=== PATIENT | male | born 1945 | race Caucasian/White ===

== ENCOUNTER 2022-11-22 08:47 | Inpatient (IN) | payer MEDICARE, BC ==
[~2022-11-22] VITALS: Ht 188 cm; Wt 101.4 kg
[~2022-11-22 08:47] MED LIST: ASPI-1053 PO; CARB1TAB36; CARV-50 PO; CARV25TA PO; COL0.6T; DABI150C PO; FURO40TA4 PO; GABA-338 PO; LISI-222 PO; POTA20TA84 PO; RASA1TAB PO; SIMV10TA98 PO; SULI150T50 PO
--- NOTE | 2022-11-22 09:20 | NUR ---
ASSUMED CARE FROM RN. PT RESTINF IN BED, GRAVEDIGGER IN PLACE. DAUGHTER AT BEDSIDE. INTRODUCED SELF AND ROLE. PT EDUCATED TO POC. PT IN AGREEMENT.
[2022-11-22] MEDS ORDERED: LidoCAINE 2% Topical Jelly 11mL syringe TOP ONE (10:15)
[2022-11-22 10:20] LABS: BASOPHILS % (AUTO) 1.3 % (0-1); EOSINOPHILS # (AUTO) 0.2 X10'3 (0-0.9); EOSINOPHILS % (AUTO) 4.1 % (0-6); HEMOGLOBIN 9.3 g/dl (14.0-17.9); LYMPHOCYTES # (AUTO) 0.7 X10'3 (1.1-4.8); MEAN CORPUSCULAR HEMOGLOBIN 33.7 PG (27.0-31.0); MEAN CORPUSCULAR HGB CONC 34.3 g/dL (33.0-36.5); MEAN CORPUSCULAR VOLUME 98.2 FL (78-98); MEAN PLATELET VOLUME 8.4 FL (7.4-10.4); MONOCYTES # (AUTO) 0.4 X10'3 (0-0.9); MONOCYTES % (AUTO) 10.6 % (2-12); NEUTROPHILS # (AUTO) 2.4 X10'3 (1.8-7.7); PLATELET COUNT 108 X10'3 (140-440); RED BLOOD COUNT 2.75 X10'6 (4.70-6.10); RED CELL DISTRIBUTION WIDTH 13.9 % (11.5-14.5); WHITE BLOOD COUNT 3.7 X10'3 (4.5-11.0)
[2022-11-22 10:26] LABS: LACTIC SEPSIS 0.7 MMOL/L (0.4-2.0)
[2022-11-22 10:32] LABS: ALANINE AMINOTRANSFERASE 9 U/L (12-78); ALBUMIN 3.3 G/DL (3.4-5.0); ALKALINE PHOSPHATASE 78 IU/L (46-116); ANION GAP 8 (8-16); ASPARTATE AMINO TRANSFERASE 22 U/L (10-37); BILIRUBIN,TOTAL 1.1 MG/DL (0.1-1.0); BLOOD UREA NITROGEN 40 MG/DL (7-18); CHLORIDE 88 MMOL/L (99-107); CREATININE 1.38 MG/DL (0.60-1.10); GLUCOSE 119 MG/DL (70-104); POTASSIUM 4.4 MMOL/L (3.5-5.1); SODIUM 122 MMOL/L (135-145); TOTAL CARBON DIOXIDE 25.8 MMOL/L (24-32); TOTAL PROTEIN 6.6 G/DL (6.4-8.2); eGFR 50 ML/MIN
[2022-11-22] MEDS ORDERED: furosemide 10 MG/1 ML 10ml inj IV ONE (10:40)
[2022-11-22] MEDS ORDERED: potassium Cl 40MEQ/1/2NS 520ml 520 ML IV PRN (11:45)
[2022-11-22] MEDS ORDERED: MESSAGE TO PHARMACY PO ONE (11:45)
[2022-11-22] MEDS ORDERED: DEXTROSE 15 GM of carb/4 tabs (each vial/BOTTLE has 4 tablets) PO PRN ×2 (11:45)
[2022-11-22] MEDS ORDERED: glucagon, human recombinant 1mg kit SUBCUT PRN (11:45)
[2022-11-22] MEDS ORDERED: magnesium 2GM in 50ml NS 50 ML IV PRN (11:45)
[2022-11-22] MEDS ORDERED: insulin Lispro (HumaLOG) vial - multi-dose SQ SCH (11:45)
[2022-11-22] MEDS ORDERED: ondansetron/PF 4mg/2ml inj IV PRN (11:45)
[2022-11-22] MEDS ORDERED: acetaminophen 325mg tablet PO PRN (11:45)
[2022-11-22] MEDS ORDERED: PERFLUTREN PROTEIN-A MICROSPHR (Optison) 0.22 MG/ML 3ML VIAL IV ONE (11:45)
[2022-11-22] MEDS ORDERED: potassium Cl 20 mEq SR tablet PO PRN ×2 (11:45)
[2022-11-22] MEDS ORDERED: dextrose 50%-water 50ml dispensing syringe IV PRN ×2 (11:45)
[2022-11-22] MEDS ORDERED: magnesium Cl slow-release 64mg tablet PO PRN ×2 (11:45)
[2022-11-22] MEDS ORDERED: magnesium 4gm in 100ml NS 100 ML IV PRN (11:45)
[2022-11-22 12:11] LABS: MAGNESIUM 1.8 MG/DL (1.5-2.4)
[2022-11-22] MEDS: normal saline 1000ml 1,000 ML IV SCH (19:04)
[2022-11-22] MEDS ORDERED: SACU1TAB7 PO (19:37)
--- NOTE | 2022-11-22 19:53 | NUR ---
pt placed onto inpatient bed
[2022-11-22] MEDS: docusate sod 100mg capsule PO SCH (20:00)
[2022-11-22] MEDS: K and/or MAG REPLACEMENT MC SCH (20:00)
--- NOTE | 2022-11-22 20:26 | NUR ---
[facility] [phone] [facility] [place] [phone]
[2022-11-22] MEDS: insulin glargine (Lantus) pen - multi-dose SQ SCH (22:37)
--- NOTE | 2022-11-23 02:16 | NUR ---
SPOKE WITH HOSPITALIST REGARDING SOFT BP. ORDER FOR 500ML BOLUS RECIEVED
[2022-11-23] MEDS ORDERED: normal saline 500ml IV soln 500 ML IV ONE (02:20)
[2022-11-23 03:36] LABS: BASOPHILS % (AUTO) 1.2 % (0-1); EOSINOPHILS # (AUTO) 0.1 X10'3 (0-0.9); HEMATOCRIT 23.3 % (42.0-52.0); LYMPHOCYTES # (AUTO) 0.6 X10'3 (1.1-4.8); LYMPHOCYTES % (AUTO) 19.8 % (21-51); MEAN CORPUSCULAR HEMOGLOBIN 33.7 PG (27.0-31.0); MEAN CORPUSCULAR HGB CONC 34.3 g/dL (33.0-36.5); MEAN CORPUSCULAR VOLUME 98.2 FL (78-98); MEAN PLATELET VOLUME 8.2 FL (7.4-10.4); MONOCYTES # (AUTO) 0.4 X10'3 (0-0.9); MONOCYTES % (AUTO) 11.8 % (2-12); NEUTROPHILS % (AUTO) 63.2 % (42-75); PLATELET COUNT 89 X10'3 (140-440); RED BLOOD COUNT 2.38 X10'6 (4.70-6.10); RED CELL DISTRIBUTION WIDTH 14.1 % (11.5-14.5); WHITE BLOOD COUNT 3.1 X10'3 (4.5-11.0)
[2022-11-23 03:52] LABS: ALBUMIN 2.5 G/DL (3.4-5.0); ANION GAP 6 (8-16); BLOOD UREA NITROGEN 38 MG/DL (7-18); BUN/CREATININE RATIO 31.4 (10.0-20.0); CALCIUM 8.2 MG/DL (8.5-10.1); CHLORIDE 90 MMOL/L (99-107); CREATININE 1.21 MG/DL (0.60-1.10); GLUCOSE 129 MG/DL (70-104); MAGNESIUM 1.6 MG/DL (1.5-2.4); POTASSIUM 4.3 MMOL/L (3.5-5.1); SODIUM 123 MMOL/L (135-145); TOTAL CARBON DIOXIDE 26.6 MMOL/L (24-32); eGFR 58 ML/MIN
[2022-11-23] MEDS: normal saline 1000ml 1,000 ML IV SCH ×2 (04:37→14:25)
[2022-11-23] MEDS: K and/or MAG REPLACEMENT MC SCH ×2 (08:00→20:00)
[2022-11-23] MEDS: docusate sod 100mg capsule PO SCH ×2 (08:00→22:09)
--- NOTE | 2022-11-23 08:15 | NUR ---
Second attempt to give report to the surgical nurse, the nurse not available giving medication to a patient.
--- NOTE | 2022-11-23 08:39 | NUR ---
Received report from MISTI Garza from the ER. Reprioritized patients plan of care, needs and current condition. Patient is NAD at this time. Patient is going to room 352 A. Comming up via hospital bed
--- NOTE | 2022-11-23 09:30 | NUR ---
TELE number 43 applied to patient.
[2022-11-23 11:00] VITALS: BP 107/53
--- NOTE | 2022-11-23 11:14 | NUR ---
Wound care consult put in for BLE's seeping pitting edema/ flakiness/ scaley. Opti foam applied to an open area on the back side. Patient states it was a burn.
--- NOTE | 2022-11-23 11:27 | NUR ---
Non admin SCD's at this time, as patients BLE's are to swollen with 4+ pitting edema. Addendum: 11/23/22 at 1127 by Rina Phillip LVN, LVN Amended: Links added.
--- NOTE | 2022-11-23 11:33 | NUR ---
Paged the hospitalist in re: to order of NS running @ 100 IV and patient has 4+ pitting edema. Also awaiting to relay an FYI for patient H&H.
[2022-11-23] MEDS ORDERED: CHOL100046 PO (12:52)
[2022-11-23] MEDS ORDERED: CYAN500T46 PO (12:52)
[2022-11-23] MEDS ORDERED: CHOL20002 PO (12:52)
[2022-11-23] MEDS ORDERED: CYAN-51 SL (12:52)
--- NOTE | 2022-11-23 15:49 | NUR ---
Applied JOAO alonzo, per Dr. Miranda.
--- NOTE | 2022-11-23 17:08 | NUR ---
Called TELE unit to receive info if we can interrogate that patients specific pacemaker per Dr. Miranda's request,
--- NOTE | 2022-11-23 18:00 | NUR ---
I have reviewed and agree with interventions, assessments performed, and documentation by Rina Randolph LVN.
--- NOTE | 2022-11-23 18:19 | NUR ---
Reprioritized patients plan of care. NAD at this time. Report given to MISTI Almanza.
--- NOTE | 2022-11-23 18:30 | NUR ---
Patient in room TEENA 352. I have received report from ANGELI and had the opportunity to ask questions and assume patient care.
[2022-11-23 19:00] VITALS: BP 94/50
[2022-11-23] MEDS ORDERED: LISI5TAB22 PO (20:12)
[2022-11-23] MEDS ORDERED: DABI150C PO (20:12)
[2022-11-23] MEDS ORDERED: RASA0.5T PO (20:12)
[2022-11-23] MEDS ORDERED: CARB1TAB60 PO (20:12)
[2022-11-23] MEDS ORDERED: GABA300C PO (20:12)
[2022-11-23] MEDS ORDERED: ATOR40TA PO (20:12)
[2022-11-23] MEDS ORDERED: COLC0.6T72 PO (20:12)
[2022-11-23] MEDS ORDERED: SULI150T50 PO (20:12)
--- NOTE | 2022-11-23 20:15 | NUR ---
DR HARGROVE NOTIFIED: MED REC NEEDS TO BE ADDRESSED. PT HAS VERY LARGE, HARD DISTENDED ABD. MINIMAL BOWEL SOUNDS. PT DENIES GAS AND STATES HIS LAST BM WAS "A COUPLE OF DAYS AGO" ORDERS FOR SOAP SUDS ENEMA AND MOM.
[2022-11-23] MEDS ORDERED: magnesium hydroxide 30ml (MOM) UD suspension PO PRN (20:25)
[2022-11-23] MEDS: insulin glargine (Lantus) pen - multi-dose SQ SCH (21:00)
[2022-11-23] MEDS ORDERED: carVEDilol 12.5mg tablet PO SCH (21:00)
[2022-11-23] MEDS ORDERED: atorvastatin 20mg tablet PO SCH (21:00)
--- NOTE | 2022-11-23 22:00 | NUR ---
BOWEL SOUNDS NOW ACTIVE. PT STATES POSITIVE GAS AND SMALL LIQUID BROWN BM
[2022-11-23] MEDS: carbidoba-levodopa 25-100mg tablet PO SCH (22:09)
[2022-11-23] MEDS: gabapentin 300mg capsule PO SCH (22:10)
[2022-11-23 23:00] VITALS: BP 95/45
[2022-11-24] VITALS (17 sets, daily range): BP systolic 79–123; BP diastolic 35–79
[2022-11-24] MEDS: normal saline 1000ml 1,000 ML IV SCH (02:21)
--- NOTE | 2022-11-24 06:55 | NUR ---
Problems reprioritized. Patient report given, questions answered & plan of care reviewed with NORIS.
--- NOTE | 2022-11-24 06:57 | NUR ---
Patient in room TEENA 352. I have received report from Jessica CHAPPELL and had the opportunity to ask questions and assume patient care.
[2022-11-24 07:00] LABS: BASOPHILS % (AUTO) 0.8 % (0-1); EOSINOPHILS # (AUTO) 0.2 X10'3 (0-0.9); EOSINOPHILS % (AUTO) 4.7 % (0-6); HEMATOCRIT 23.6 % (42.0-52.0); HEMOGLOBIN 8.2 g/dl (14.0-17.9); LYMPHOCYTES # (AUTO) 0.8 X10'3 (1.1-4.8); LYMPHOCYTES % (AUTO) 20.7 % (21-51); MEAN CORPUSCULAR HEMOGLOBIN 33.9 PG (27.0-31.0); MEAN CORPUSCULAR HGB CONC 34.8 g/dL (33.0-36.5); MEAN CORPUSCULAR VOLUME 97.4 FL (78-98); MEAN PLATELET VOLUME 8.8 FL (7.4-10.4); MONOCYTES # (AUTO) 0.4 X10'3 (0-0.9); MONOCYTES % (AUTO) 11.7 % (2-12); NEUTROPHILS # (AUTO) 2.4 X10'3 (1.8-7.7); NEUTROPHILS % (AUTO) 62.1 % (42-75); PLATELET COUNT 94 X10'3 (140-440); RED BLOOD COUNT 2.42 X10'6 (4.70-6.10); RED CELL DISTRIBUTION WIDTH 13.7 % (11.5-14.5); WHITE BLOOD COUNT 3.8 X10'3 (4.5-11.0)
[2022-11-24 07:11] LABS: ALBUMIN 2.5 G/DL (3.4-5.0); ANION GAP 6 (8-16); BLOOD UREA NITROGEN 31 MG/DL (7-18); BUN/CREATININE RATIO 32.6 (10.0-20.0); CALCIUM 8.4 MG/DL (8.5-10.1); CHLORIDE 93 MMOL/L (99-107); CREATININE 0.95 MG/DL (0.60-1.10); GLUCOSE 122 MG/DL (70-104); MAGNESIUM 1.7 MG/DL (1.5-2.4); POTASSIUM 4.5 MMOL/L (3.5-5.1); SODIUM 124 MMOL/L (135-145); TOTAL CARBON DIOXIDE 24.9 MMOL/L (24-32); eGFR 77 ML/MIN
--- NOTE | 2022-11-24 07:58 | NUR ---
PAGER ID: [phone] MESSAGE: Ino- Sridhar Moffett: Pt BP this morning 90/39. Please call regarding pt status RODDY aguirre [phone] called and notified BP 90/39 noted at 0600. BP taken 0740 104/50 HR 69. Patient has Normal saline infusing per MD orders at 100ml/hr. Edema +4 noted to scrotum and thighs, +2/3 edema noted to BLE and RUE. provided telephone orders for 25 grams albumin Q6 hours, to be given 3 times. Received telephone order for ABD x-ray. Noted will carry out Addendum: 11/24/22 at 0818 by Feli Villa LVN PAGER ID: [phone] MESSAGE: 352- Sridhar Moffett: BP 104/50, administer or hold scheduled coreg and entresto? RODDY Edmond [phone]
[2022-11-24] MEDS ORDERED: carVEDilol 12.5mg tablet PO SCH (08:00)
[2022-11-24] MEDS: dabigatran 150mg capsule PO SCH ×2 (08:00→21:32)
[2022-11-24] MEDS ORDERED: sacubitril/valsartan 49mg-51mg tablet PO SCH (08:00)
[2022-11-24] MEDS ORDERED: lisinopril 5mg tablet PO SCH (08:00)
[2022-11-24] MEDS: K and/or MAG REPLACEMENT MC SCH ×2 (08:00→20:00)
[2022-11-24] MEDS: gabapentin 300mg capsule PO SCH ×3 (09:07→21:32)
[2022-11-24] MEDS: aspirin 81mg tab.chew PO SCH (09:07)
[2022-11-24] MEDS: docusate sod 100mg capsule PO SCH ×2 (09:08→21:32)
[2022-11-24] MEDS: colchicine 0.6mg tablet PO SCH (09:08)
[2022-11-24] MEDS: carbidoba-levodopa 25-100mg tablet PO SCH ×3 (09:08→21:33)
--- NOTE | 2022-11-24 09:45 | NUR ---
BP obtained 119/59 HR 72, scheduled medication administered. Awaiting MD response to administer or hold scheduled pradaxa Addendum: 11/24/22 at 1309 by Feli Villa LVN Page sent again PAGER ID: [phone] MESSAGE: Sridhar Villarreal- Pt platelets 94 administer or hold pradaxa? Per Rojas Addendum: 11/24/22 at 1319 by Feli Villa LVN MD did not respond, call placed to MD brand Received telephone order to hold scheduled dose this morning and to administer this evening as scheduled ordered to continue to monitor
[2022-11-24] MEDS: albumin (human) 25% 100ml IV 100 ML IV SCH ×3 (09:47→20:44)
--- NOTE | 2022-11-24 09:55 | NUR ---
DM consult: No documented PMH DM with A1c hx 6.4% 09/28/12 and A1c 5.1% this admit. Noted pt with h/o CHF though no lipid panel this admit and pt with hyponatremia. Message left for RN with recommendation to discontinue heart healthy and CHO controlled diet restrictions in view of previously mentioned information. Will continue to follow. Addendum: 11/24/22 at [address] Amended: Links added.
[2022-11-24] MEDS ORDERED: furosemide inj 100 MG in normal saline 100ml IV soln 90 ML IV SCH (10:55)
--- NOTE | 2022-11-24 13:00 | NUR ---
I have reviewed and agree with interventions, assessments, and documentation by Feli Garces LVN.
--- NOTE | 2022-11-24 13:53 | NUR ---
PAGER ID: [phone] MESSAGE: 352-Sridhar Moffett: You still want to continue albumin correct? Per hale [id number] Addendum: 11/24/22 at 1355 by Feli Villa LVN called and provided telephone order yes
--- NOTE | 2022-11-24 14:30 | NUR ---
Report provided to Abeba CHAPPELL on Tele. Patient is stable, no s/sx of distress noted, patient denies pain. AOx4. 2 daughters at bedside, all belongings accounted for and sent with patient. Patient assisted to telemetry floor via hospital bed.
--- NOTE | 2022-11-24 15:21 | NUR ---
PRESSURE ULCER EDUCATION: DEFINITION: A pressure ulcer is an area of skin that breaks down when you stay in one position too long. The constant pressure against the skin reduces the blood flow to that area and the affected tissue dies. CAUSES: "Being bedridden or in a wheelchair "Fragile skin "Having a chronic condition, such as diabetes or vascular disease "Inability to move certain parts of your body without assistance "Older age "Incontinence of urine or stool SYMPTOMS: "A reddened area that DOES NOT turn white when pressed on - this can be the beginning of a pressure ulcer "A blister, deep sore or a crater - these can be advanced pressure ulcers FIRST AID: "Relieve the pressure on this area "Keep the area clean and dry "Call your primary doctor if you see any of the above symptoms "DO NOT massage the area "DO NOT use a donut shaped or ring shaped pillow- these actually interfere with the blood flow and cause complications PREVENTION: "Check for pressure ulcers everyday "Change position at least every two hours to relieve pressure "Use items that help relieve pressure- pillows, sheepskin, foam padding, and powders. "Keep skin clean and dry "Eat healthy well balanced meals "Exercise daily IF YOU SEE ANY OF THESE SYMPTOMS WHILE IN THE HOSPITAL - TELL YOUR NURSE IMMEDIATELY. IF YOU SEE ANY OF THESE SYMPTOMS WHILE AT HOME OR HAVE ANY QUESTIONS OR CONCERNS ABOUT PRESSURE ULCERS - CALL YOUR PRIMARY DOCTOR IMMEDIATELY. Addendum: 11/24/22 at 1521 by Liyah Villalpando RN Amended: Links added.
[2022-11-24 15:27] LABS: ALBUMIN 2.6 G/DL (3.4-5.0); ANION GAP 4 (8-16); BLOOD UREA NITROGEN 31 MG/DL (7-18); CALCIUM 8.4 MG/DL (8.5-10.1); CHLORIDE 92 MMOL/L (99-107); CREATININE 0.97 MG/DL (0.60-1.10); GLUCOSE 121 MG/DL (70-104); POTASSIUM 4.5 MMOL/L (3.5-5.1); SODIUM 123 MMOL/L (135-145); eGFR 75 ML/MIN
--- NOTE | 2022-11-24 16:24 | NUR ---
Notified pharmacy to bring lasix gtt, still pending gtt to be rec'd to unit.
[2022-11-24] MEDS: furosemide inj 100 MG in normal saline 100ml IV soln 90 ML IV SCH (16:56)
--- NOTE | 2022-11-24 18:36 | NUR ---
Patient in room PCU 3019. I have received report from Abeba CHAPPELL and had the opportunity to ask questions and assume patient care.
[2022-11-24] MEDS ORDERED: sacubitril/valsartan 24mg-26mg tablet PO SCH (20:00)
--- NOTE | 2022-11-24 20:15 | NUR ---
Pt to floor. Alert and oriented no c/o of dizzyness/lightheadedness/nausea/pain. Pt has 4+ pitting edema in all extremeties. He is hypotensive with MAP of 55. paced rhythm. only 50cc of UO in Lambert. 18g PIV placed L UE for albumin and possible levophed. Awaiting critical care consult.
[2022-11-24 20:53] LABS: BASOPHILS % (AUTO) 0.9 % (0-1); EOSINOPHILS # (AUTO) 0.2 X10'3 (0-0.9); EOSINOPHILS % (AUTO) 5.8 % (0-6); HEMATOCRIT 23.5 % (42.0-52.0); LYMPHOCYTES # (AUTO) 0.6 X10'3 (1.1-4.8); LYMPHOCYTES % (AUTO) 23.1 % (21-51); MEAN CORPUSCULAR HEMOGLOBIN 33.4 PG (27.0-31.0); MEAN CORPUSCULAR HGB CONC 33.9 g/dL (33.0-36.5); MEAN CORPUSCULAR VOLUME 98.5 FL (78-98); MEAN PLATELET VOLUME 8.2 FL (7.4-10.4); MONOCYTES # (AUTO) 0.3 X10'3 (0-0.9); MONOCYTES % (AUTO) 12.4 % (2-12); NEUTROPHILS # (AUTO) 1.6 X10'3 (1.8-7.7); NEUTROPHILS % (AUTO) 57.8 % (42-75); PLATELET COUNT 83 X10'3 (140-440); RED BLOOD COUNT 2.38 X10'6 (4.70-6.10); RED CELL DISTRIBUTION WIDTH 14.2 % (11.5-14.5); WHITE BLOOD COUNT 2.7 X10'3 (4.5-11.0)
[2022-11-24 20:59] LABS: ALBUMIN 2.9 G/DL (3.4-5.0); ANION GAP 4 (8-16); BLOOD UREA NITROGEN 32 MG/DL (7-18); BUN/CREATININE RATIO 33.3 (10.0-20.0); CALCIUM 8.2 MG/DL (8.5-10.1); CHLORIDE 92 MMOL/L (99-107); CREATININE 0.96 MG/DL (0.60-1.10); GLUCOSE 128 MG/DL (70-104); POTASSIUM 4.5 MMOL/L (3.5-5.1); SODIUM 123 MMOL/L (135-145); TOTAL CARBON DIOXIDE 26.7 MMOL/L (24-32); eGFR 76 ML/MIN
[2022-11-24] MEDS: insulin glargine (Lantus) pen - multi-dose SQ SCH (21:00)
--- NOTE | 2022-11-24 21:00 | NUR ---
rounded on pt. Aware the Lasix drip is not doing much for the pt currently. Lasix 40mg bolus ordered. If pt continues to have MAPs less than 60 than start norepi. is aware pt does not have a CVC but I did place an extended length 18g via US in the RUE.
[2022-11-24] MEDS ORDERED: NORepinephrine 8mg/ 250ml NS 250 ML IV PRN (21:35)
[2022-11-24] MEDS ORDERED: furosemide 40mg/4ml inj IV ONE (21:45)
[2022-11-25] VITALS (24 sets, daily range): BP systolic 85–126; BP diastolic 36–70
[2022-11-25] MEDS: furosemide inj 100 MG in normal saline 100ml IV soln 90 ML IV SCH ×2 (00:06→10:47)
--- NOTE | 2022-11-25 00:29 | NUR ---
Pt had to go on norepi at low dose. MAPs > 60. UO has picked up nicely since the bolus dose of lasix was given. Pt was placed on Bipap but he was unable to comfortably wear the mask and he has been off it since he's been here (and apparently it's been broke at home for some time now).
[2022-11-25 02:44] LABS: EOSINOPHILS # (AUTO) 0.3 X10'3 (0-0.9); HEMATOCRIT 24.2 % (42.0-52.0); MONOCYTES # (AUTO) 0.6 X10'3 (0-0.9); RED BLOOD COUNT 2.47 X10'6 (4.70-6.10)
[2022-11-25 02:46] LABS: BASOPHILS % (AUTO) 1.1 % (0-1); EOSINOPHILS % (AUTO) 6.4 % (0-6); HEMOGLOBIN 8.4 g/dl (14.0-17.9); LYMPHOCYTES # (AUTO) 0.7 X10'3 (1.1-4.8); LYMPHOCYTES % (AUTO) 16.1 % (21-51); MEAN CORPUSCULAR HEMOGLOBIN 33.8 PG (27.0-31.0); MEAN CORPUSCULAR HGB CONC 34.5 g/dL (33.0-36.5); MEAN CORPUSCULAR VOLUME 98.1 FL (78-98); MEAN PLATELET VOLUME 8.2 FL (7.4-10.4); NEUTROPHILS % (AUTO) 64.4 % (42-75); PLATELET COUNT 113 X10'3 (140-440); RED CELL DISTRIBUTION WIDTH 14.2 % (11.5-14.5); WHITE BLOOD COUNT 4.6 X10'3 (4.5-11.0)
[2022-11-25 02:50] LABS: ANION GAP 5 (8-16); BLOOD UREA NITROGEN 31 MG/DL (7-18); BUN/CREATININE RATIO 33.3 (10.0-20.0); CALCIUM 8.2 MG/DL (8.5-10.1); CHLORIDE 92 MMOL/L (99-107); CREATININE 0.93 MG/DL (0.60-1.10); GLUCOSE 143 MG/DL (70-104); MAGNESIUM 1.7 MG/DL (1.5-2.4); PHOSPHORUS 3.1 MG/DL (2.3-4.5); POTASSIUM 4.6 MMOL/L (3.5-5.1); SODIUM 125 MMOL/L (135-145); eGFR 79 ML/MIN
--- NOTE | 2022-11-25 06:18 | NUR ---
Patient in room CICU 2007. I have received report from Felix Morris and had the opportunity to ask questions and assume patient care.
[2022-11-25] MEDS: K and/or MAG REPLACEMENT MC SCH ×2 (08:00→20:00)
[2022-11-25] MEDS: carbidoba-levodopa 25-100mg tablet PO SCH ×3 (08:25→20:08)
[2022-11-25] MEDS: docusate sod 100mg capsule PO SCH ×2 (08:26→20:08)
[2022-11-25] MEDS: gabapentin 300mg capsule PO SCH ×3 (08:26→20:08)
[2022-11-25] MEDS: aspirin 81mg tab.chew PO SCH (08:26)
[2022-11-25] MEDS: pantoprazole 40mg Tablet.DR PO SCH (08:58)
--- NOTE | 2022-11-25 10:38 | NUR ---
Suture Gauger recommended regular diet vs current order of heart healthy. new order rec MINIATURE TRAIN DRIVER for reg diet.
[2022-11-25 10:40] LABS: ALBUMIN 2.7 G/DL (3.4-5.0); ANION GAP 6 (8-16); BLOOD UREA NITROGEN 31 MG/DL (7-18); BUN/CREATININE RATIO 36.5 (10.0-20.0); CALCIUM 8.1 MG/DL (8.5-10.1); CHLORIDE 92 MMOL/L (99-107); CREATININE 0.85 MG/DL (0.60-1.10); GLUCOSE 126 MG/DL (70-104); POTASSIUM 4.5 MMOL/L (3.5-5.1); SODIUM 124 MMOL/L (135-145); TOTAL CARBON DIOXIDE 25.6 MMOL/L (24-32); eGFR 88 ML/MIN
--- NOTE | 2022-11-25 10:47 | NUR ---
Noted pt with a low Jeffrey of 11. Per [facility] note pt with a burn walter on his back from a heating pad that's healing. No other wounds identified at this time. D/w RN recommendation for diet liberalization, pt now on a regular diet. Will continue to follow. Addendum: 11/25/22 at [address] Amended: Links added.
[2022-11-25] MEDS: dabigatran 150mg capsule PO SCH ×2 (12:50→20:07)
[2022-11-25] MEDS: colchicine 0.6mg tablet PO SCH (12:52)
--- NOTE | 2022-11-25 13:15 | NUR ---
After informed consent was obtained, Allens test was performed with positive results then patient was prepped and draped in usual sterile fashion for radial arterial line insertion. The right wrist was anesthetized with 1% Lidocaine total of 1ml was infiltrated and the right radial artery accessed via the Seldinger technique after which a 5F micro puncture catheter was inserted and connected to pressure bag transduced and correlated with cuff pressure. Puncture site was covered with sterile dressing and wrist immobilized. All questions, comments and or concerns were addressed from patient family and floor nursing staff prior to leaving patients room. Approximate time to setup and place arterial line 45 mins estimated blood loss less then 3mls.
[2022-11-25] MEDS ORDERED: albumin (human) 25% 100 ML IV solution IV ONE (16:05)
[2022-11-25 17:30] LABS: GLUCOSE,BODY FLUID 132 MG/DL; LDH,BODY FLUID 63 U/L; TOTAL PROTEIN,BODY FLUID 3.5 G/DL
[2022-11-25 17:41] LABS: BFAPPEAR CLOUDY; BFCOLOR YELLOW; BFVOLUME 65 ML
[2022-11-25 17:43] LABS: BF WBC COUNT 140 /CU MM (0-1000)
[2022-11-25 17:45] LABS: BF RBC COUNT 3330 /CU MM; EOSINOPHILS,BODY FLUID 2 %; LYMPHOCYTES,BODY FLUID 70 %; MONOCYTES,BODY FLUID 13 %; NEUTROPHILS,BODY FLUID 15 %
--- NOTE | 2022-11-25 18:30 | NUR ---
Problems reprioritized. Patient report given, questions answered & plan of care reviewed with Memo RN.
[2022-11-25 18:50] LABS: ALBUMIN 3.1 G/DL (3.4-5.0); ANION GAP 5 (8-16); BLOOD UREA NITROGEN 32 MG/DL (7-18); BUN/CREATININE RATIO 39.5 (10.0-20.0); CALCIUM 8.3 MG/DL (8.5-10.1); CHLORIDE 91 MMOL/L (99-107); CREATININE 0.81 MG/DL (0.60-1.10); GLUCOSE 119 MG/DL (70-104); POTASSIUM 4.6 MMOL/L (3.5-5.1); SODIUM 125 MMOL/L (135-145); TOTAL CARBON DIOXIDE 28.6 MMOL/L (24-32); eGFR > 90 ML/MIN
--- NOTE | 2022-11-25 19:45 | NUR ---
Wound on buttock dressed with xeroform and foam dressing. Lotion and Calazime cream applied during bath. Pt tolerated turning well.
[2022-11-26] VITALS (24 sets, daily range): BP systolic 100–123; BP diastolic 37–55
[2022-11-26 01:24] LABS: ALBUMIN 2.8 G/DL (3.4-5.0); ANION GAP 3 (8-16); BLOOD UREA NITROGEN 30 MG/DL (7-18); BUN/CREATININE RATIO 37.5 (10.0-20.0); CALCIUM 8.1 MG/DL (8.5-10.1); CHLORIDE 93 MMOL/L (99-107); GLUCOSE 139 MG/DL (70-104); MAGNESIUM 1.5 MG/DL (1.5-2.4); POTASSIUM 4.6 MMOL/L (3.5-5.1); SODIUM 126 MMOL/L (135-145); TOTAL CARBON DIOXIDE 29.7 MMOL/L (24-32); eGFR > 90 ML/MIN
[2022-11-26] MEDS: furosemide inj 100 MG in normal saline 100ml IV soln 90 ML IV SCH ×3 (01:24→13:02)
[2022-11-26 01:49] LABS: BASOPHILS % (AUTO) 0.9 % (0-1); EOSINOPHILS # (AUTO) 0.4 X10'3 (0-0.9); EOSINOPHILS % (AUTO) 8.7 % (0-6); HEMATOCRIT 24.7 % (42.0-52.0); HEMOGLOBIN 8.4 g/dl (14.0-17.9); LYMPHOCYTES # (AUTO) 0.9 X10'3 (1.1-4.8); LYMPHOCYTES % (AUTO) 19.4 % (21-51); MEAN CORPUSCULAR HEMOGLOBIN 33.3 PG (27.0-31.0); MEAN CORPUSCULAR HGB CONC 33.9 g/dL (33.0-36.5); MEAN CORPUSCULAR VOLUME 98.3 FL (78-98); MEAN PLATELET VOLUME 8.5 FL (7.4-10.4); MONOCYTES # (AUTO) 0.6 X10'3 (0-0.9); MONOCYTES % (AUTO) 13.2 % (2-12); NEUTROPHILS # (AUTO) 2.6 X10'3 (1.8-7.7); NEUTROPHILS % (AUTO) 57.8 % (42-75); PLATELET COUNT 115 X10'3 (140-440); RED BLOOD COUNT 2.52 X10'6 (4.70-6.10); RED CELL DISTRIBUTION WIDTH 13.8 % (11.5-14.5); WHITE BLOOD COUNT 4.4 X10'3 (4.5-11.0)
[2022-11-26 06:57] LABS: ALBUMIN 2.8 G/DL (3.4-5.0); ANION GAP 5 (8-16); BLOOD UREA NITROGEN 29 MG/DL (7-18); BUN/CREATININE RATIO 39.2 (10.0-20.0); CHLORIDE 92 MMOL/L (99-107); CREATININE 0.74 MG/DL (0.60-1.10); GLUCOSE 132 MG/DL (70-104); POTASSIUM 4.5 MMOL/L (3.5-5.1); SODIUM 126 MMOL/L (135-145); TOTAL CARBON DIOXIDE 28.9 MMOL/L (24-32); eGFR > 90 ML/MIN
[2022-11-26] MEDS: pantoprazole 40mg Tablet.DR PO SCH (07:30)
[2022-11-26] MEDS: colchicine 0.6mg tablet PO SCH (08:00)
[2022-11-26] MEDS: K and/or MAG REPLACEMENT MC SCH ×2 (08:00→18:33)
[2022-11-26] MEDS: aspirin 81mg tab.chew PO SCH (08:44)
[2022-11-26] MEDS: carbidoba-levodopa 25-100mg tablet PO SCH ×3 (08:44→20:32)
[2022-11-26] MEDS: docusate sod 100mg capsule PO SCH ×2 (08:45→20:29)
[2022-11-26] MEDS: gabapentin 300mg capsule PO SCH ×3 (08:45→20:32)
[2022-11-26] MEDS: dabigatran 150mg capsule PO SCH ×2 (08:46→20:32)
[2022-11-26 09:12] LABS: ALANINE AMINOTRANSFERASE 6 U/L (12-78); ALKALINE PHOSPHATASE 63 IU/L (46-116); ASPARTATE AMINO TRANSFERASE 10 U/L (10-37); BILIRUBIN,TOTAL 0.8 MG/DL (0.1-1.0); MAGNESIUM 1.6 MG/DL (1.5-2.4); TOTAL PROTEIN 5.5 G/DL (6.4-8.2)
[2022-11-26 12:19] LABS: ALBUMIN 2.9 G/DL (3.4-5.0); ANION GAP 3 (8-16); BLOOD UREA NITROGEN 29 MG/DL (7-18); BUN/CREATININE RATIO 35.4 (10.0-20.0); CALCIUM 8.3 MG/DL (8.5-10.1); CHLORIDE 93 MMOL/L (99-107); CREATININE 0.82 MG/DL (0.60-1.10); GLUCOSE 121 MG/DL (70-104); MAGNESIUM 1.5 MG/DL (1.5-2.4); PHOSPHORUS 2.9 MG/DL (2.3-4.5); POTASSIUM 4.5 MMOL/L (3.5-5.1); SODIUM 126 MMOL/L (135-145); eGFR > 90 ML/MIN
[2022-11-26 17:29] LABS: ALBUMIN 2.9 G/DL (3.4-5.0); ANION GAP 2 (8-16); BLOOD UREA NITROGEN 29 MG/DL (7-18); BUN/CREATININE RATIO 31.2 (10.0-20.0); CALCIUM 8.3 MG/DL (8.5-10.1); CHLORIDE 94 MMOL/L (99-107); CREATININE 0.93 MG/DL (0.60-1.10); GLUCOSE 140 MG/DL (70-104); MAGNESIUM 1.5 MG/DL (1.5-2.4); PHOSPHORUS 3.1 MG/DL (2.3-4.5); POTASSIUM 4.5 MMOL/L (3.5-5.1); SODIUM 126 MMOL/L (135-145); TOTAL CARBON DIOXIDE 30.5 MMOL/L (24-32); eGFR 79 ML/MIN
[2022-11-26 23:48] LABS: ALBUMIN 2.9 G/DL (3.4-5.0); ANION GAP 3 (8-16); BLOOD UREA NITROGEN 28 MG/DL (7-18); BUN/CREATININE RATIO 32.2 (10.0-20.0); CALCIUM 8.6 MG/DL (8.5-10.1); CHLORIDE 92 MMOL/L (99-107); CREATININE 0.87 MG/DL (0.60-1.10); GLUCOSE 130 MG/DL (70-104); MAGNESIUM 1.5 MG/DL (1.5-2.4); PHOSPHORUS 3.2 MG/DL (2.3-4.5); POTASSIUM 4.6 MMOL/L (3.5-5.1); SODIUM 127 MMOL/L (135-145); TOTAL CARBON DIOXIDE 32.4 MMOL/L (24-32); eGFR 85 ML/MIN
[2022-11-27] VITALS (24 sets, daily range): BP systolic 93–132; BP diastolic 30–56
--- NOTE | 2022-11-27 00:30 | NUR ---
Called Dr. Kelly regarding pt has nausea and vomiting not relieved by Zofran. Order received.
--- NOTE | 2022-11-27 01:00 | NUR ---
Called Dr. Kelly regarding pt continuing to vomit. NG tube placed.
[2022-11-27] MEDS ORDERED: metoclopramide 5 mg/ml inj IV ONE (01:40)
[2022-11-27] MEDS: furosemide inj 100 MG in normal saline 100ml IV soln 90 ML IV SCH (03:32)
--- NOTE | 2022-11-27 04:00 | NUR ---
Pt taken to CT. Tolerated transport well.
[2022-11-27 04:12] LABS: ALBUMIN 2.9 G/DL (3.4-5.0); ALBUMIN/GLOBULIN RATIO 1.1 (1.1-1.5); ALKALINE PHOSPHATASE 67 IU/L (46-116); ANION GAP 3 (8-16); ASPARTATE AMINO TRANSFERASE 14 U/L (10-37); BILIRUBIN,TOTAL 0.9 MG/DL (0.1-1.0); BLOOD UREA NITROGEN 29 MG/DL (7-18); BUN/CREATININE RATIO 33.3 (10.0-20.0); CALCIUM 8.8 MG/DL (8.5-10.1); CHLORIDE 93 MMOL/L (99-107); CREATININE 0.87 MG/DL (0.60-1.10); GLUCOSE 145 MG/DL (70-104); MAGNESIUM 1.5 MG/DL (1.5-2.4); PHOSPHORUS 3.2 MG/DL (2.3-4.5); POTASSIUM 4.5 MMOL/L (3.5-5.1); SODIUM 127 MMOL/L (135-145); TOTAL CARBON DIOXIDE 31.3 MMOL/L (24-32); TOTAL PROTEIN 5.6 G/DL (6.4-8.2); eGFR 85 ML/MIN
[2022-11-27 04:13] LABS: ALANINE AMINOTRANSFERASE < 6 U/L (12-78)
[2022-11-27 04:28] LABS: BASOPHILS % (AUTO) 0.5 % (0-1); EOSINOPHILS # (AUTO) 0.1 X10'3 (0-0.9); EOSINOPHILS % (AUTO) 4.6 % (0-6); HEMATOCRIT 30.2 % (42.0-52.0); HEMOGLOBIN 10.3 g/dl (14.0-17.9); LYMPHOCYTES # (AUTO) 0.4 X10'3 (1.1-4.8); LYMPHOCYTES % (AUTO) 16.2 % (21-51); MEAN CORPUSCULAR HEMOGLOBIN 33.5 PG (27.0-31.0); MEAN CORPUSCULAR HGB CONC 34.1 g/dL (33.0-36.5); MEAN CORPUSCULAR VOLUME 98.3 FL (78-98); MEAN PLATELET VOLUME 8.6 FL (7.4-10.4); MONOCYTES # (AUTO) 0.1 X10'3 (0-0.9); MONOCYTES % (AUTO) 4.2 % (2-12); NEUTROPHILS % (AUTO) 74.5 % (42-75); PLATELET COUNT 142 X10'3 (140-440); RED BLOOD COUNT 3.07 X10'6 (4.70-6.10); RED CELL DISTRIBUTION WIDTH 13.6 % (11.5-14.5); WHITE BLOOD COUNT 2.7 X10'3 (4.5-11.0)
[2022-11-27 05:11] LABS: ANISOCYTOSIS FEW; NUCLEATED RED BLOOD CELLS 1 /100WBC (0-0); PLATELET ESTIMATE NORMAL; TOTAL CELLS COUNTED 100
[2022-11-27 05:12] LABS: POIKILOCYTOSIS FEW
[2022-11-27] MEDS: K and/or MAG REPLACEMENT MC SCH ×2 (07:45→20:00)
[2022-11-27] MEDS: dabigatran 150mg capsule PO SCH (08:00)
[2022-11-27] MEDS: colchicine 0.6mg tablet PO SCH (08:00)
[2022-11-27] MEDS: docusate sod 100mg capsule PO SCH ×2 (08:00→21:05)
[2022-11-27] MEDS: pantoprazole 40MG/NS 100ML BAG 100 ML IV SCH (08:12)
[2022-11-27] MEDS: gabapentin 300mg capsule PO SCH ×3 (09:28→21:05)
[2022-11-27] MEDS: aspirin 81mg tab.chew PO SCH (09:29)
[2022-11-27] MEDS: carbidoba-levodopa 25-100mg tablet PO SCH ×3 (09:29→21:04)
[2022-11-27] MEDS ORDERED: furosemide inj 100 MG in normal saline 100ml IV soln 90 ML IV SCH (10:20)
[2022-11-27] MEDS ORDERED: lactulose 20gm/30ml cup PO SCH (10:30)
[2022-11-27] MEDS ORDERED: albumin (human) 25% 100 ML IV solution IV ONE (11:25)
[2022-11-27] MEDS: piperacillin/tazobactam inj. 3.375 GM in NS 50ml IV SCH (11:36)
[2022-11-27] MEDS: enoxaparin 100mg/ml syringe SUBCUT SCH ×2 (11:37→21:05)
[2022-11-27 11:47] LABS: CLARITY,URINE CLEAR (Clear); COLOR,URINE YELLOW (Yellow); GLUCOSE, URINE NEGATIVE (Neg); KETONES,URINE NEGATIVE (Neg); LEUKOCYTE ESTERASE ,URINE NEGATIVE (Neg); NITRITES, URINE NEGATIVE (Neg); OCCULT BLOOD,URINE MODERATE (Neg); PROTEIN,URINE NEGATIVE (Neg); UROBILINOGEN,URINE 0.2 E.U/dL (0.2-1.0)
[2022-11-27 11:50] LABS: UA COLLECTION TYPE FOLEY CATH
[2022-11-27 12:02] LABS: HYALINE CASTS 0-3 /LPF (NEGATIVE); SQUAMOUS EPITHELIAL CELL,UR FEW /LPF (FEW)
[2022-11-27 12:03] LABS: BACTERIA,URINE FEW /HPF (Neg); WBC,URINE 0-4 /HPF (0-4)
[2022-11-27 12:04] LABS: CAL OXALATE CRYSTALS FEW /HPF (NEGATIVE)
[2022-11-27] MEDS: vancomycin/NS 1 GM ADD-VANTAGE 250 ML IV SCH (12:22)
--- NOTE | 2022-11-27 12:35 | NUR ---
Initial: Pt admit for hyponatremia with fluid overload and weakness. Pt found to have ascites most likely d/t chronic liver disease per MD note with h/o EtOH which was discontinued in July 2022 per family at [facility]. MD notified of slightly elevated MCV though no intervention implemented. Pt s/p paracentesis 11/25 with 4.4 L fluid removed per report. Pt originally on an EC7 heart healthy CHO controlled diet which was liberalized to a regular diet 11/[address] recommendations in view of hyponatremia and no h/o DM with A1c 5.1%. Pt was eating fairly well, documented with average 63% PO intake since admit, however per RN at [facility] pt with three bouts of emesis over night (11/26) and an NGT was placed with 2 L removed. Per RN NGT remains on suction and pt with 200-300 mL out since day shift this morning. Pt now NPO and to get f/u CT tomorrow per RN. LBM 11/27 with previous BM 11/24 per EMR. Pt more drowsy this morning per RN. Serum ammonia is slightly elevated. Pt to begin routine Lactulose Q6H per MD at [facility]. Will continue to follow closely and make recommendations as appropriate. Recommendations: 1) Advance to regular diet as medically indicated; heart healthy CHO controlled diet restrictions not warranted in view of hyponatremia and no h/o DM with A1c 5.1% 2) Initiate nutrition support if expected prolonged NPO status 3) Routine bowel care 4) Weekly scaled weights Addendum: 11/27/22 at [address] Amended: Links added.
[2022-11-27] MEDS: NORepinephrine 8mg/ 250ml NS 250 ML IV PRN ×2 (13:56→17:18)
--- NOTE | 2022-11-27 17:45 | NUR ---
Patient remains drowsy throughout the day. Awakens easily to verbal stimuli. Oriented. Levo titrated up during the day to 0.3 mcg/kg/min to maintain MAP 65. Lasix gtt stopped per orders. Received 25% Albumin. NG drainage changed from thick yellow to green bile. UO decreased since Lasix stopped.
[2022-11-27] MEDS: diatr meglu/diatrizoate 30ml oral sol.-(3 dose) bottle PO SCH (21:05)
[2022-11-28] VITALS (24 sets, daily range): BP systolic 101–140; BP diastolic 36–50
[2022-11-28 03:11] LABS: BASOPHILS % (AUTO) 0.7 % (0-1); EOSINOPHILS # (AUTO) 0.1 X10'3 (0-0.9); EOSINOPHILS % (AUTO) 1.6 % (0-6); HEMATOCRIT 27.1 % (42.0-52.0); HEMOGLOBIN 9.1 g/dl (14.0-17.9); LYMPHOCYTES # (AUTO) 1.2 X10'3 (1.1-4.8); LYMPHOCYTES % (AUTO) 19.4 % (21-51); MEAN CORPUSCULAR HEMOGLOBIN 33.3 PG (27.0-31.0); MEAN CORPUSCULAR HGB CONC 33.8 g/dL (33.0-36.5); MEAN CORPUSCULAR VOLUME 98.7 FL (78-98); MEAN PLATELET VOLUME 8.8 FL (7.4-10.4); MONOCYTES # (AUTO) 0.9 X10'3 (0-0.9); MONOCYTES % (AUTO) 13.4 % (2-12); NEUTROPHILS # (AUTO) 4.1 X10'3 (1.8-7.7); NEUTROPHILS % (AUTO) 64.9 % (42-75); PLATELET COUNT 134 X10'3 (140-440); RED BLOOD COUNT 2.74 X10'6 (4.70-6.10); RED CELL DISTRIBUTION WIDTH 14.4 % (11.5-14.5); WHITE BLOOD COUNT 6.4 X10'3 (4.5-11.0)
[2022-11-28 03:27] LABS: ALBUMIN 3.1 G/DL (3.4-5.0); ALBUMIN/GLOBULIN RATIO 1.4 (1.1-1.5); ALKALINE PHOSPHATASE 44 IU/L (46-116); ANION GAP 5 (8-16); ASPARTATE AMINO TRANSFERASE 18 U/L (10-37); BILIRUBIN,TOTAL 1.3 MG/DL (0.1-1.0); BLOOD UREA NITROGEN 29 MG/DL (7-18); BUN/CREATININE RATIO 31.2 (10.0-20.0); CALCIUM 8.2 MG/DL (8.5-10.1); CHLORIDE 95 MMOL/L (99-107); CREATININE 0.93 MG/DL (0.60-1.10); GLUCOSE 133 MG/DL (70-104); MAGNESIUM 1.6 MG/DL (1.5-2.4); PHOSPHORUS 3.2 MG/DL (2.3-4.5); POTASSIUM 4.2 MMOL/L (3.5-5.1); SODIUM 130 MMOL/L (135-145); TOTAL CARBON DIOXIDE 29.7 MMOL/L (24-32); TOTAL PROTEIN 5.3 G/DL (6.4-8.2); eGFR 79 ML/MIN
[2022-11-28 03:32] LABS: ALANINE AMINOTRANSFERASE < 6 U/L (12-78)
--- NOTE | 2022-11-28 06:30 | NUR ---
Patient in room CICU 2007. I have received report from Brianda CHAPPELL and had the opportunity to ask questions and assume patient care.
[2022-11-28] MEDS: pantoprazole 40MG/NS 100ML BAG 100 ML IV SCH (07:40)
[2022-11-28] MEDS: enoxaparin 100mg/ml syringe SUBCUT SCH ×2 (07:41→21:10)
[2022-11-28] MEDS: piperacillin/tazobactam inj. 3.375 GM in NS 50ml IV SCH ×4 (07:42→23:57)
[2022-11-28] MEDS: K and/or MAG REPLACEMENT MC SCH ×2 (07:43→20:00)
[2022-11-28] MEDS: carbidoba-levodopa 25-100mg tablet PO SCH ×3 (08:00→21:09)
[2022-11-28] MEDS: gabapentin 300mg capsule PO SCH ×3 (08:00→21:09)
[2022-11-28] MEDS: aspirin 81mg tab.chew PO SCH (08:00)
[2022-11-28] MEDS: colchicine 0.6mg tablet PO SCH (08:00)
[2022-11-28] MEDS: docusate sod 100mg capsule PO SCH ×2 (08:00→21:09)
[2022-11-28] MEDS: diatr meglu/diatrizoate 30ml oral sol.-(3 dose) bottle PO SCH ×2 (09:43→21:00)
--- NOTE | 2022-11-28 10:53 | NUR ---
CT of abd Pt taken to CT for abdominal CT w/oral contrast. Tolerated excursion well & without incident. Position in bed to comfort when back in CICU.
[2022-11-28] MEDS: vancomycin/NS 1 GM ADD-VANTAGE 250 ML IV SCH ×3 (11:46→23:57)
[2022-11-28] MEDS: midodrine tablet 2.5 MG TABLET PO SCH ×2 (13:27→16:08)
[2022-11-28] MEDS: NORepinephrine 8mg/ 250ml NS 250 ML IV PRN (16:02)
--- NOTE | 2022-11-28 18:25 | NUR ---
Problems reprioritized. Patient report given, questions answered & plan of care reviewed with Elsi CHAPPELL.
[2022-11-28] MEDS ORDERED: VANCOMYCIN LEVEL IV ONE (23:30)
[2022-11-29] VITALS (21 sets, daily range): BP systolic 100–123; BP diastolic 40–52
[2022-11-29 02:46] LABS: BASOPHILS % (AUTO) 0.5 % (0-1); EOSINOPHILS # (AUTO) 0.2 X10'3 (0-0.9); EOSINOPHILS % (AUTO) 3.8 % (0-6); HEMATOCRIT 22.2 % (42.0-52.0); HEMOGLOBIN 7.6 g/dl (14.0-17.9); LYMPHOCYTES # (AUTO) 0.9 X10'3 (1.1-4.8); MEAN CORPUSCULAR HEMOGLOBIN 33.3 PG (27.0-31.0); MEAN CORPUSCULAR VOLUME 97.9 FL (78-98); MEAN PLATELET VOLUME 7.6 FL (7.4-10.4); MONOCYTES # (AUTO) 0.5 X10'3 (0-0.9); MONOCYTES % (AUTO) 10.4 % (2-12); NEUTROPHILS # (AUTO) 2.8 X10'3 (1.8-7.7); NEUTROPHILS % (AUTO) 65.3 % (42-75); PLATELET COUNT 87 X10'3 (140-440); RED BLOOD COUNT 2.27 X10'6 (4.70-6.10); RED CELL DISTRIBUTION WIDTH 13.9 % (11.5-14.5); WHITE BLOOD COUNT 4.3 X10'3 (4.5-11.0)
[2022-11-29 03:06] LABS: ALBUMIN 2.8 G/DL (3.4-5.0); ALBUMIN/GLOBULIN RATIO 1.2 (1.1-1.5); ALKALINE PHOSPHATASE 41 IU/L (46-116); ANION GAP 5 (8-16); ASPARTATE AMINO TRANSFERASE 18 U/L (10-37); BILIRUBIN,TOTAL 0.9 MG/DL (0.1-1.0); BLOOD UREA NITROGEN 22 MG/DL (7-18); BUN/CREATININE RATIO 26.8 (10.0-20.0); CHLORIDE 96 MMOL/L (99-107); CREATININE 0.82 MG/DL (0.60-1.10); GLUCOSE 119 MG/DL (70-104); MAGNESIUM 1.5 MG/DL (1.5-2.4); PHOSPHORUS 2.3 MG/DL (2.3-4.5); POTASSIUM 3.7 MMOL/L (3.5-5.1); SODIUM 132 MMOL/L (135-145); TOTAL CARBON DIOXIDE 30.8 MMOL/L (24-32); TOTAL PROTEIN 5.2 G/DL (6.4-8.2); eGFR > 90 ML/MIN
[2022-11-29 03:11] LABS: ALANINE AMINOTRANSFERASE < 6 U/L (12-78)
[2022-11-29] MEDS: pantoprazole 40MG/NS 100ML BAG 100 ML IV SCH (07:24)
[2022-11-29] MEDS: carbidoba-levodopa 25-100mg tablet PO SCH ×3 (07:25→20:01)
[2022-11-29] MEDS: gabapentin 300mg capsule PO SCH ×3 (07:26→20:01)
[2022-11-29] MEDS: aspirin 81mg tab.chew PO SCH (07:26)
[2022-11-29] MEDS: docusate sod 100mg capsule PO SCH ×2 (07:26→20:01)
[2022-11-29] MEDS: midodrine tablet 2.5 MG TABLET PO SCH ×3 (07:26→15:47)
[2022-11-29] MEDS: colchicine 0.6mg tablet PO SCH (07:26)
[2022-11-29] MEDS: K and/or MAG REPLACEMENT MC SCH ×2 (07:31→20:00)
[2022-11-29] MEDS: piperacillin/tazobactam inj. 3.375 GM in NS 50ml IV SCH ×2 (07:41→15:48)
--- NOTE | 2022-11-29 09:20 | NUR ---
Problems reprioritized. Patient report given, questions answered & plan of care reviewed with Stone CHAPPELL.
--- NOTE | 2022-11-29 11:00 | NUR ---
Patient in room CICU 2007. I have received report from Talia CHAPPELL and had the opportunity to ask questions and assume patient care.
[2022-11-29] MEDS: NORepinephrine 8mg/ 250ml NS 250 ML IV PRN (12:02)
[2022-11-29] MEDS: VANCOmycin 1250MG/NS 250ml Bag 250 ML IV SCH ×2 (12:06→23:11)
[2022-11-29] MEDS ORDERED: bisacodyl 10mg suppository rectal RC STA (13:34)
[2022-11-29] MEDS ORDERED: bisacodyl 10mg suppository rectal RC PRN (13:35)
[2022-11-29] MEDS ORDERED: mineral oil 133ml enema RC ONE (13:35)
[2022-11-29 14:28] LABS: HEMOGLOBIN 7.3 g/dl (14.0-17.9); MEAN CORPUSCULAR HEMOGLOBIN 33.7 PG (27.0-31.0); MEAN CORPUSCULAR HGB CONC 34.2 g/dL (33.0-36.5); MEAN CORPUSCULAR VOLUME 98.5 FL (78-98); MEAN PLATELET VOLUME 7.4 FL (7.4-10.4); PLATELET COUNT 81 X10'3 (140-440); RED BLOOD COUNT 2.16 X10'6 (4.70-6.10); WHITE BLOOD COUNT 3.9 X10'3 (4.5-11.0)
[2022-11-29 14:31] LABS: HEMATOCRIT 21.3 % (42.0-52.0)
[2022-11-29] MEDS ORDERED: metoclopramide 10mg tablet PO ONE ×2 (14:37→15:10)
--- NOTE | 2022-11-29 14:41 | NUR ---
Called Dr. Barton regarding KUB results. ordered reglan and cancelled Dr. Valenzuela order of enema and supp.
[2022-11-29 14:46] LABS: % IRON SATURATION 46 % (11-46); IRON 61 UG/DL (53-167); TOTAL IRON BINDING CAPACITY 133 UG/DL (259-388)
--- NOTE | 2022-11-29 15:59 | NUR ---
Dr. Lizarraga at bedside informed of H&H .. No new orders at this time.
--- NOTE | 2022-11-29 18:23 | NUR ---
Problems reprioritized. Patient report given, questions answered & plan of care reviewed with Jess CHAPPELL.
--- NOTE | 2022-11-29 18:30 | NUR ---
Patient in room CICU 2008. I have received report from MISTI Smith and had the opportunity to ask questions and assume patient care.
[2022-11-29 19:17] LABS: ABG BASE EXCESS 5.4 mmol/L (-2.0-2.0); ABG HCO3 29.8 mmol/L (22.0-26.0); ABG OXYGEN SATURATION 95.8 % (94-97); ABG PCO2 (T) 41.8 mmHg (35.0-48.0); FCOHb 0.3 % (0.0-3.9); FMetHb 0.6 % (0.0-1.5); FO2Hb 94.9 % (94-97); PATIENT TEMPERATURE 36.3; TOTAL HEMOGLOBIN 8.5 G/dl (14.0-17.9)
[2022-11-29 19:26] LABS: OXYGEN SATURATION (MIXED VEN) 59.4 % (60-80); PO2 MIXED VENOUS (TEMP COR) 27.7 mmHg (35-46)
[2022-11-29] MEDS: dabigatran 150mg capsule PO SCH (20:01)
[2022-11-29 20:06] LABS: BASOPHILS % (AUTO) 0.8 % (0-1); EOSINOPHILS # (AUTO) 0.2 X10'3 (0-0.9); EOSINOPHILS % (AUTO) 5.1 % (0-6); HEMATOCRIT 22.4 % (42.0-52.0); HEMOGLOBIN 7.6 g/dl (14.0-17.9); LYMPHOCYTES # (AUTO) 0.8 X10'3 (1.1-4.8); LYMPHOCYTES % (AUTO) 18.2 % (21-51); MEAN CORPUSCULAR HEMOGLOBIN 33.7 PG (27.0-31.0); MEAN CORPUSCULAR HGB CONC 34.1 g/dL (33.0-36.5); MEAN CORPUSCULAR VOLUME 98.9 FL (78-98); MEAN PLATELET VOLUME 8.2 FL (7.4-10.4); MONOCYTES # (AUTO) 0.4 X10'3 (0-0.9); MONOCYTES % (AUTO) 9.8 % (2-12); NEUTROPHILS # (AUTO) 2.8 X10'3 (1.8-7.7); NEUTROPHILS % (AUTO) 66.1 % (42-75); PLATELET COUNT 88 X10'3 (140-440); RED BLOOD COUNT 2.26 X10'6 (4.70-6.10); RED CELL DISTRIBUTION WIDTH 13.8 % (11.5-14.5); WHITE BLOOD COUNT 4.2 X10'3 (4.5-11.0)
[2022-11-29 20:13] LABS: ALANINE AMINOTRANSFERASE < 6 U/L (12-78); ALBUMIN 2.8 G/DL (3.4-5.0); ALBUMIN/GLOBULIN RATIO 1.1 (1.1-1.5); ALKALINE PHOSPHATASE 42 IU/L (46-116); ANION GAP 5 (8-16); ASPARTATE AMINO TRANSFERASE 17 U/L (10-37); BILIRUBIN,TOTAL 0.8 MG/DL (0.1-1.0); BLOOD UREA NITROGEN 18 MG/DL (7-18); BUN/CREATININE RATIO 22.8 (10.0-20.0); CALCIUM 8.1 MG/DL (8.5-10.1); CHLORIDE 96 MMOL/L (99-107); CREATININE 0.79 MG/DL (0.60-1.10); GLUCOSE 141 MG/DL (70-104); MAGNESIUM 1.6 MG/DL (1.5-2.4); PHOSPHORUS 2.1 MG/DL (2.3-4.5); POTASSIUM 3.7 MMOL/L (3.5-5.1); SODIUM 131 MMOL/L (135-145); TOTAL CARBON DIOXIDE 30.5 MMOL/L (24-32); TOTAL PROTEIN 5.3 G/DL (6.4-8.2); eGFR > 90 ML/MIN
[2022-11-30] VITALS (24 sets, daily range): BP systolic 95–132; BP diastolic 37–57
[2022-11-30] MEDS: piperacillin/tazobactam inj. 3.375 GM in NS 50ml IV SCH ×4 (00:42→23:54)
[2022-11-30 03:16] LABS: BASOPHILS % (AUTO) 0.7 % (0-1); EOSINOPHILS # (AUTO) 0.2 X10'3 (0-0.9); EOSINOPHILS % (AUTO) 5.7 % (0-6); HEMOGLOBIN 7.1 g/dl (14.0-17.9); LYMPHOCYTES # (AUTO) 0.7 X10'3 (1.1-4.8); LYMPHOCYTES % (AUTO) 24.6 % (21-51); MEAN CORPUSCULAR HEMOGLOBIN 33.9 PG (27.0-31.0); MEAN CORPUSCULAR HGB CONC 34.3 g/dL (33.0-36.5); MEAN CORPUSCULAR VOLUME 98.7 FL (78-98); MEAN PLATELET VOLUME 8.5 FL (7.4-10.4); MONOCYTES # (AUTO) 0.3 X10'3 (0-0.9); MONOCYTES % (AUTO) 10.8 % (2-12); NEUTROPHILS # (AUTO) 1.7 X10'3 (1.8-7.7); NEUTROPHILS % (AUTO) 58.2 % (42-75); PLATELET COUNT 75 X10'3 (140-440); RED CELL DISTRIBUTION WIDTH 13.9 % (11.5-14.5); WHITE BLOOD COUNT 2.9 X10'3 (4.5-11.0)
[2022-11-30 03:33] LABS: HEMATOCRIT 20.7 % (42.0-52.0)
[2022-11-30 03:36] LABS: ALBUMIN 2.6 G/DL (3.4-5.0); ALBUMIN/GLOBULIN RATIO 1.1 (1.1-1.5); ALKALINE PHOSPHATASE 41 IU/L (46-116); ANION GAP 3 (8-16); ASPARTATE AMINO TRANSFERASE 15 U/L (10-37); BILIRUBIN,TOTAL 0.8 MG/DL (0.1-1.0); BLOOD UREA NITROGEN 17 MG/DL (7-18); CHLORIDE 97 MMOL/L (99-107); CREATININE 0.74 MG/DL (0.60-1.10); GLUCOSE 100 MG/DL (70-104); MAGNESIUM 1.6 MG/DL (1.5-2.4); PHOSPHORUS 2.1 MG/DL (2.3-4.5); POTASSIUM 3.6 MMOL/L (3.5-5.1); SODIUM 132 MMOL/L (135-145); TOTAL CARBON DIOXIDE 32.4 MMOL/L (24-32); eGFR > 90 ML/MIN
[2022-11-30 03:38] LABS: ALANINE AMINOTRANSFERASE < 6 U/L (12-78)
--- NOTE | 2022-11-30 03:50 | NUR ---
Notified Dr. Tavarez of critical Hct. no new orders at this time. he would like day time ocean transportation intermediary to make decision to transfuse later this morning. Patient's HR and BP are stable, off of levo for several hours. Will continue to monitor.
[2022-11-30 05:08] LABS: TOTAL CELLS COUNTED 100
[2022-11-30 05:18] LABS: ANISOCYTOSIS FEW; PLATELET ESTIMATE DECREASED; POIKILOCYTOSIS FEW
[2022-11-30 05:19] LABS: ACANTHOCYTES FEW
[2022-11-30 05:26] LABS: LARGE PLATELETS FEW
--- NOTE | 2022-11-30 06:15 | NUR ---
Problems reprioritized. Patient report given, questions answered & plan of care reviewed with MISTI Smith.
[2022-11-30] MEDS: docusate sod 100mg capsule PO SCH ×2 (07:25→20:06)
[2022-11-30] MEDS: midodrine tablet 2.5 MG TABLET PO SCH (07:25)
[2022-11-30] MEDS: carbidoba-levodopa 25-100mg tablet PO SCH ×3 (07:25→20:06)
[2022-11-30] MEDS: pantoprazole 40MG/NS 100ML BAG 100 ML IV SCH (07:25)
[2022-11-30] MEDS: aspirin 81mg tab.chew PO SCH (07:25)
[2022-11-30] MEDS: gabapentin 300mg capsule PO SCH ×3 (07:25→20:06)
[2022-11-30] MEDS: dabigatran 150mg capsule PO SCH ×2 (07:25→20:06)
[2022-11-30] MEDS: K and/or MAG REPLACEMENT MC SCH ×2 (07:26→20:00)
[2022-11-30] MEDS ORDERED: lactulose 20gm/30ml cup PO SCH (08:00)
[2022-11-30 09:14] LABS: HEMOGLOBIN 7.4 g/dl (14.0-17.9); MEAN CORPUSCULAR HEMOGLOBIN 33.8 PG (27.0-31.0); MEAN CORPUSCULAR HGB CONC 34.4 g/dL (33.0-36.5); MEAN CORPUSCULAR VOLUME 98.5 FL (78-98); MEAN PLATELET VOLUME 8.5 FL (7.4-10.4); PLATELET COUNT 77 X10'3 (140-440); RED BLOOD COUNT 2.18 X10'6 (4.70-6.10); RED CELL DISTRIBUTION WIDTH 13.7 % (11.5-14.5); WHITE BLOOD COUNT 3.1 X10'3 (4.5-11.0)
[2022-11-30 09:45] LABS: HEMATOCRIT 21.5 % (42.0-52.0)
--- NOTE | 2022-11-30 11:34 | NUR ---
F/u 11/30: Pt NG removed 11/28 advanced to clear liquids 11/28 WL ~13% first meals now advanced to Na-restricted diet starting WL today per MD. Serum Na remains low though to remain on Na restriction given liver cirrhosis w/ ascites and anasarca per spectrograph operator. LBM 11/27 receiving routine colace and started on metoclopramide as well as Lactulose Q8H per MD. Pt seen by RD at bedside regarding wt hx as moderate temporal wasting visibly evident. Pt reports stable wt hx had some wt loss last January following passing though no major changes typically eats 2 meals/day at home and daughter buys [employer] proteins which he drinks one/day and sometimes buys food for him as well. Pt reports cooks less at home though daughter will make meals if requests. Given hx and initial good meal acceptance pt lacks minimum malnutrition criteria though is at risk if PO remains poor. RD notified pt of ONS options if appetite has not returned w/ solid meals and encouraged pt to make food preferences known. Will monitor for solid meal PO trends and further nutrition intervention needs this admit. Recommendations: 1) Continue Na-restricted diet per MD; encourage PO 2) monitor PO trends for ONS needs; if poor appetite Ensure Enlive TIDWM 3) Routine bowel care 4) daily scaled weights Addendum: 11/30/22 at [address] Amended: Links added.
[2022-11-30] MEDS: midodrine 5mg tablet PO SCH ×2 (12:20→15:46)
[2022-11-30] MEDS: VANCOmycin 1250MG/NS 250ml Bag 250 ML IV SCH ×2 (12:20→23:23)
[2022-11-30] MEDS: lactulose 20gm/30ml cup PO SCH ×2 (15:07→23:54)
[2022-11-30] MEDS: spironolactone 25 MG tablet PO SCH (15:47)
--- NOTE | 2022-11-30 18:09 | NUR ---
Problems reprioritized. Patient report given, questions answered & plan of care reviewed with Jess CHAPPELL.
--- NOTE | 2022-11-30 18:30 | NUR ---
Patient in room CICU 2008. I have received report from MISTI Smith and had the opportunity to ask questions and assume patient care.
[2022-11-30] MEDS: furosemide 40mg/4ml inj IV SCH (20:06)
[2022-11-30] MEDS ORDERED: VANCOMYCIN LEVEL IV ONE (22:30)
--- NOTE | 2022-11-30 23:50 | NUR ---
Vanco trough received, 23.9. Reported to pharmacist Lorraine. Instructed to stop vanco infusion. About 54 cc infused.
[2022-12-01] VITALS (17 sets, daily range): BP systolic 98–140; BP diastolic 36–66
[2022-12-01 04:07] LABS: EOSINOPHILS # (AUTO) 0.1 X10'3 (0-0.9); HEMATOCRIT 22.3 % (42.0-52.0); HEMOGLOBIN 7.6 g/dl (14.0-17.9); LYMPHOCYTES # (AUTO) 0.7 X10'3 (1.1-4.8); WHITE BLOOD COUNT 2.8 X10'3 (4.5-11.0)
[2022-12-01 04:09] LABS: EOSINOPHILS % (AUTO) 4.9 % (0-6); LYMPHOCYTES % (AUTO) 25.7 % (21-51); MEAN CORPUSCULAR HEMOGLOBIN 33.5 PG (27.0-31.0); MEAN CORPUSCULAR HGB CONC 34.2 g/dL (33.0-36.5); MEAN CORPUSCULAR VOLUME 97.8 FL (78-98); MEAN PLATELET VOLUME 8.3 FL (7.4-10.4); MONOCYTES # (AUTO) 0.4 X10'3 (0-0.9); MONOCYTES % (AUTO) 12.4 % (2-12); NEUTROPHILS # (AUTO) 1.6 X10'3 (1.8-7.7); PLATELET COUNT 82 X10'3 (140-440); RED BLOOD COUNT 2.28 X10'6 (4.70-6.10); RED CELL DISTRIBUTION WIDTH 13.9 % (11.5-14.5)
[2022-12-01 04:18] LABS: ALBUMIN 2.8 G/DL (3.4-5.0); ALBUMIN/GLOBULIN RATIO 1.1 (1.1-1.5); ALKALINE PHOSPHATASE 48 IU/L (46-116); ANION GAP 6 (8-16); ASPARTATE AMINO TRANSFERASE 12 U/L (10-37); BILIRUBIN,TOTAL 0.9 MG/DL (0.1-1.0); BLOOD UREA NITROGEN 14 MG/DL (7-18); BUN/CREATININE RATIO 18.7 (10.0-20.0); CALCIUM 8.3 MG/DL (8.5-10.1); CHLORIDE 97 MMOL/L (99-107); CREATININE 0.75 MG/DL (0.60-1.10); GLUCOSE 99 MG/DL (70-104); MAGNESIUM 1.6 MG/DL (1.5-2.4); PHOSPHORUS 2.3 MG/DL (2.3-4.5); POTASSIUM 3.4 MMOL/L (3.5-5.1); SODIUM 133 MMOL/L (135-145); TOTAL CARBON DIOXIDE 30.5 MMOL/L (24-32); TOTAL PROTEIN 5.4 G/DL (6.4-8.2); eGFR > 90 ML/MIN
[2022-12-01 04:19] LABS: ALANINE AMINOTRANSFERASE < 6 U/L (12-78)
[2022-12-01 04:36] LABS: PLATELET ESTIMATE DECREASED; TOTAL CELLS COUNTED 100
[2022-12-01 04:37] LABS: ANISOCYTOSIS FEW; BURR CELLS FEW; ELLIPTOCYTES FEW
[2022-12-01] MEDS ORDERED: potassium Cl 20 mEq SR tablet PO PRN (05:40)
[2022-12-01] MEDS: potassium Cl 20 mEq SR tablet PO PRN ×2 (05:52→11:34)
--- NOTE | 2022-12-01 06:12 | NUR ---
Problems reprioritized. Patient report given, questions answered & plan of care reviewed with MISTI Smith.
--- NOTE | 2022-12-01 06:15 | NUR ---
Patient in room CICU 2008. I have received report from Jess CHAPPELL and had the opportunity to ask questions and assume patient care.
[2022-12-01] MEDS: docusate sod 100mg capsule PO SCH ×2 (08:00→20:06)
[2022-12-01] MEDS: lactulose 20gm/30ml cup PO SCH ×2 (08:00→20:06)
[2022-12-01] MEDS: K and/or MAG REPLACEMENT MC SCH ×2 (08:00→20:00)
[2022-12-01] MEDS: spironolactone 25 MG tablet PO SCH (08:16)
[2022-12-01] MEDS: aspirin 81mg tab.chew PO SCH (08:16)
[2022-12-01] MEDS: pantoprazole 40MG/NS 100ML BAG 100 ML IV SCH (08:16)
[2022-12-01] MEDS: piperacillin/tazobactam inj. 3.375 GM in NS 50ml IV SCH ×2 (08:16→16:18)
[2022-12-01] MEDS: gabapentin 300mg capsule PO SCH ×3 (08:16→20:06)
[2022-12-01] MEDS: midodrine 5mg tablet PO SCH ×3 (08:16→16:05)
[2022-12-01] MEDS: dabigatran 150mg capsule PO SCH ×2 (08:16→20:06)
[2022-12-01] MEDS: furosemide 40mg/4ml inj IV SCH (08:17)
[2022-12-01] MEDS: carbidoba-levodopa 25-100mg tablet PO SCH ×3 (08:17→20:06)
--- NOTE | 2022-12-01 12:05 | NUR ---
Patient daughter at bedside. Informed of pt transferring to room 0608E.
[2022-12-01] MEDS: vancomycin/NS 1 GM ADD-VANTAGE 250 ML IV SCH (13:00)
--- NOTE | 2022-12-01 13:30 | NUR ---
Patient in room PCU 3026. I have received report from Sarah CHAPPELL and had the opportunity to ask questions and assume patient care. Pt arrived via recliner. Pt alert and oriented x 4, Pt has small amount of bilateral periorbital edema. Pt breathing even and unlabored on room air. No distress noted. Left basalar inspiratory fine crackle unrelieved by coughing. 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 Pt has bowel sounds present x 4 all quads. Pt has Non pitting edema noted to abdomen, thighs, and scrotum. Pt has santoyo cather noted in place. Pt has bilateral pitting edema noted to lower extremities x 2. Pt has dry dressing noted to buttocks. Denies pain and denies SOB Addendum: 12/01/22 at 1400 by Gerardo Rivera LVN Amended: Links added.
--- NOTE | 2022-12-01 13:37 | NUR ---
Patient transferred to room 3026A. Patient report given to tele nurse Iliana. Nurse at bedside to receive patient. Patients daughter at bedside. Pt transferred with all belongings.
--- NOTE | 2022-12-01 16:14 | NUR ---
Pt Skin assessment completed. Findings: Left forearm skin tear, bruising noted to BUE, scrotal redness with skin flaking, burn to left buttock from heating pad as per pt report, skin dryness noted to BLE, and hypertrophic toe nails noted to bilateral feet
[2022-12-02] MEDS: vancomycin/NS 1 GM ADD-VANTAGE 250 ML IV SCH ×2 (00:02→11:00)
[2022-12-02] MEDS: furosemide 40mg/4ml inj IV SCH ×2 (00:02→09:55)
[2022-12-02] MEDS: piperacillin/tazobactam inj. 3.375 GM in NS 50ml IV SCH ×2 (01:37→07:58)
[2022-12-02 02:00] VITALS: BP 105/57
[2022-12-02 06:30] VITALS: BP 96/55
[2022-12-02 07:13] LABS: EOSINOPHILS # (AUTO) 0.1 X10'3 (0-0.9); EOSINOPHILS % (AUTO) 3.3 % (0-6); HEMOGLOBIN 7.6 g/dl (14.0-17.9); LYMPHOCYTES # (AUTO) 0.8 X10'3 (1.1-4.8); LYMPHOCYTES % (AUTO) 22.2 % (21-51); MEAN CORPUSCULAR HEMOGLOBIN 34.2 PG (27.0-31.0); MEAN CORPUSCULAR HGB CONC 34.9 g/dL (33.0-36.5); MEAN PLATELET VOLUME 8.5 FL (7.4-10.4); MONOCYTES # (AUTO) 0.4 X10'3 (0-0.9); MONOCYTES % (AUTO) 12.2 % (2-12); NEUTROPHILS # (AUTO) 2.2 X10'3 (1.8-7.7); NEUTROPHILS % (AUTO) 61.3 % (42-75); PLATELET COUNT 83 X10'3 (140-440); RED BLOOD COUNT 2.22 X10'6 (4.70-6.10); WHITE BLOOD COUNT 3.6 X10'3 (4.5-11.0)
[2022-12-02 07:22] LABS: HEMATOCRIT 21.7 % (42.0-52.0)
--- NOTE | 2022-12-02 07:28 | NUR ---
WOC consult received. This pt already being followed by wound team. No new skin issues. We will see him as scheduled.
[2022-12-02 07:31] LABS: ALBUMIN 2.7 G/DL (3.4-5.0); ALBUMIN/GLOBULIN RATIO 1.1 (1.1-1.5); ALKALINE PHOSPHATASE 47 IU/L (46-116); ANION GAP 8 (8-16); ASPARTATE AMINO TRANSFERASE 17 U/L (10-37); BLOOD UREA NITROGEN 12 MG/DL (7-18); BUN/CREATININE RATIO 15.6 (10.0-20.0); CALCIUM 8.4 MG/DL (8.5-10.1); CHLORIDE 96 MMOL/L (99-107); CREATININE 0.77 MG/DL (0.60-1.10); GLUCOSE 92 MG/DL (70-104); MAGNESIUM 1.5 MG/DL (1.5-2.4); PHOSPHORUS 2.6 MG/DL (2.3-4.5); POTASSIUM 3.6 MMOL/L (3.5-5.1); SODIUM 133 MMOL/L (135-145); TOTAL CARBON DIOXIDE 29.4 MMOL/L (24-32); TOTAL PROTEIN 5.2 G/DL (6.4-8.2); eGFR > 90 ML/MIN
--- NOTE | 2022-12-02 07:45 | NUR ---
PAGER ID: [phone] MESSAGE: [id number] Jhon Moffett: critical hct 21.7. hgb 7.6. thanks iker [phone]
[2022-12-02 07:46] LABS: ALANINE AMINOTRANSFERASE 6 U/L (12-78)
[2022-12-02] MEDS: gabapentin 300mg capsule PO SCH ×2 (07:59→13:00)
[2022-12-02] MEDS: carbidoba-levodopa 25-100mg tablet PO SCH ×2 (07:59→13:00)
[2022-12-02] MEDS: lactulose 20gm/30ml cup PO SCH (07:59)
[2022-12-02] MEDS: docusate sod 100mg capsule PO SCH (07:59)
[2022-12-02] MEDS: midodrine 5mg tablet PO SCH ×2 (07:59→11:41)
[2022-12-02] MEDS: K and/or MAG REPLACEMENT MC SCH (08:00)
[2022-12-02] MEDS: pantoprazole 40MG/NS 100ML BAG 100 ML IV SCH (08:05)
[2022-12-02] MEDS: spironolactone 25 MG tablet PO SCH (09:54)
[2022-12-02] MEDS: dabigatran 150mg capsule PO SCH (10:05)
[2022-12-02] MEDS: aspirin 81mg tab.chew PO SCH (10:05)
[2022-12-02] MEDS ORDERED: FURO40TA4 PO (10:18)
[2022-12-02] MEDS ORDERED: SPIR100T PO (10:18)
--- NOTE | 2022-12-02 10:30 | NUR ---
bladder scan shows >340, patient states he feels the need to void. MD aware will give him some time to void, if unable then santoyo catheter will be replaced.
[2022-12-02 11:00] VITALS: BP 112/72
--- NOTE | 2022-12-02 13:46 | NUR ---
Patient stable and appropriate for transfer to [facility] via [facility]. PICC line removed, nuclear monitoring technician removed. All belongings taken with daughter at bedside. Report called to receiving facility.
[2022-12-02] MEDS ORDERED: VANCOMYCIN LEVEL IV ONE (22:30)
== END 2022-12-02 13:51 | DRG 432 ==
LOC: ER 08:47 → ED HOLD 11:57 → EDBEDREQ 11-23 04:40 → SUR 3N 11-23 08:55 → PCU 3S 11-24 14:30 → CICU 2S 11-24 20:01 → PCU 3S 12-01 13:25
PROVIDERS: ADMIT Internal Medicine; ATTEND Internal Medicine
PROC: 5A09357 Assistance with Respiratory Ventilation, Less than 24 Consecutive Hours, Continuous Positive Airway Pressure (ICD-10-PCS; principal; 2022-11-24)
PROC: 0W9G3ZX Drainage of Peritoneal Cavity, Percutaneous Approach, Diagnostic (ICD-10-PCS; 2022-11-25)
PROC: 02HV33Z Insertion of Infusion Device into Superior Vena Cava, Percutaneous Approach (ICD-10-PCS; 2022-11-25)
PROC: B548ZZA Ultrasonography of Superior Vena Cava, Guidance (ICD-10-PCS; 2022-11-25)
PROC: 0D9670Z Drainage of Stomach with Drainage Device, Via Natural or Artificial Opening (ICD-10-PCS; 2022-11-27)
DX: K74.60 Unspecified cirrhosis of liver (principal); G93.41 Metabolic encephalopathy; I50.23 Acute on chronic systolic (congestive) heart failure; R57.8 Other shock; E87.1 Hypo-osmolality and hyponatremia; K56.7 Ileus, unspecified; K59.39 Other megacolon; R18.8 Other ascites; K76.6 Portal hypertension; K76.82 Hepatic encephalopathy; I48.91 Unspecified atrial fibrillation; D46.9 Myelodysplastic syndrome, unspecified; E86.0 Dehydration; G47.33 Obstructive sleep apnea (adult) (pediatric); E11.42 Type 2 diabetes mellitus with diabetic polyneuropathy; Z60.2 Problems related to living alone; G20 Parkinson's disease; I87.2 Venous insufficiency (chronic) (peripheral); D69.6 Thrombocytopenia, unspecified; K40.20 Bilateral inguinal hernia, without obstruction or gangrene, not specified as recurrent; R00.0 Tachycardia, unspecified; K42.9 Umbilical hernia without obstruction or gangrene; I65.29 Occlusion and stenosis of unspecified carotid artery; I11.0 Hypertensive heart disease with heart failure; I25.10 Atherosclerotic heart disease of native coronary artery without angina pectoris; K80.20 Calculus of gallbladder without cholecystitis without obstruction; M10.9 Gout, unspecified; Z79.01 Long term (current) use of anticoagulants; Z79.82 Long term (current) use of aspirin; Z79.899 Other long term (current) drug therapy; Z87.891 Personal history of nicotine dependence; Z95.1 Presence of aortocoronary bypass graft; Z95.810 Presence of automatic (implantable) cardiac defibrillator; I95.2 Hypotension due to drugs; T50.1X5A Adverse effect of loop [high-ceiling] diuretics, initial encounter; Y92.230 Patient room in hospital as the place of occurrence of the external cause
CPT/HCPCS: 36415; 36569; 36600; 49083; 71045; 74018; 74176; 76705; 76942; 80048; 80053; 80202; 81001; 82140; 82803; 82810; 82945; 82948; 83036; 83540; 83550; 83605; 83615; 83735; 83880; 84100; 84145; 84157; 84484; 85007; 85018; 85025; 85027; 85610; 86885; 86900; 86901; 87040; 87070; 87081; 87088; 88108; 88305; 89051; 93005; 93306; 94660; 94760; 97110; 97161; 97530; 97535; 99285; A4333; A4615; A5200; A6212; A6213; A6222; A6250; A6258; A6402; A6449; C1751; C9113; G0378; J1650; J1815; J1940; J2405; J2543; J2765; J3370; J3490; J7030; J7040; J8597; P9047; Q9963

== ENCOUNTER 2022-12-03 18:35 | Emergency (ER) | payer MEDICARE, BC ==
[~2022-12-03] VITALS: Ht 188 cm; Wt 98.6 kg
[~2022-12-03 18:35] MED LIST changes: +ATOR40TA PO; +CARB1TAB60 PO; +CHOL100046 PO; +CHOL20002 PO; +COLC0.6T72 PO; +CYAN-51 SL; +CYAN500T46 PO; +GABA300C PO; +LISI5TAB22 PO; +RASA0.5T PO; +SACU1TAB7 PO; +SPIR100T PO
[2022-12-03] MEDS ORDERED: LIDOcaine 2% 10ml TOPICAL JELLY (Urojet) MM STA (19:09)
[2022-12-03] MEDS ORDERED: LidoCAINE 2% Topical Jelly 11mL syringe MM STA (19:10)
--- NOTE | 2022-12-03 19:32 | NUR ---
Attempted to obtain santoyo with coude catheter. Unsuccessful attempt.
--- NOTE | 2022-12-03 19:34 | NUR ---
MADE AWARE, HE INFORMED ME TO CALL UROLOGY, TAPPER OPERATOR MADE AWARE.
[2022-12-03 19:58] LABS: BASOPHILS # (AUTO) 0.1 X10'3 (0-0.2); BASOPHILS % (AUTO) 1.1 % (0-1); EOSINOPHILS # (AUTO) 0.2 X10'3 (0-0.9); EOSINOPHILS % (AUTO) 3.6 % (0-6); HEMOGLOBIN 8.1 g/dl (14.0-17.9); LYMPHOCYTES % (AUTO) 18.6 % (21-51); MEAN CORPUSCULAR HGB CONC 33.6 g/dL (33.0-36.5); MEAN CORPUSCULAR VOLUME 98.3 FL (78-98); MEAN PLATELET VOLUME 8.1 FL (7.4-10.4); MONOCYTES # (AUTO) 0.6 X10'3 (0-0.9); MONOCYTES % (AUTO) 10.9 % (2-12); NEUTROPHILS # (AUTO) 3.7 X10'3 (1.8-7.7); NEUTROPHILS % (AUTO) 65.8 % (42-75); PLATELET COUNT 116 X10'3 (140-440); RED BLOOD COUNT 2.44 X10'6 (4.70-6.10); WHITE BLOOD COUNT 5.6 X10'3 (4.5-11.0)
[2022-12-03 20:00] LABS: ALBUMIN 3.1 G/DL (3.4-5.0); ANION GAP 6 (8-16); BLOOD UREA NITROGEN 11 MG/DL (7-18); BUN/CREATININE RATIO 13.4 (10.0-20.0); CALCIUM 8.7 MG/DL (8.5-10.1); CHLORIDE 97 MMOL/L (99-107); CREATININE 0.82 MG/DL (0.60-1.10); GLUCOSE 109 MG/DL (70-104); POTASSIUM 3.3 MMOL/L (3.5-5.1); SODIUM 134 MMOL/L (135-145); TOTAL CARBON DIOXIDE 30.8 MMOL/L (24-32); eGFR > 90 ML/MIN
[2022-12-03 20:24] LABS: CLARITY,URINE SLIGHTLY CLOUDY (Clear); COLOR,URINE YELLOW (Yellow); GLUCOSE, URINE NEGATIVE (Neg); KETONES,URINE TRACE mg/dl (Neg); LEUKOCYTE ESTERASE ,URINE NEGATIVE (Neg); NITRITES, URINE NEGATIVE (Neg); OCCULT BLOOD,URINE NEGATIVE (Neg); PH,URINE 6.5 (4.8-8.0); PROTEIN,URINE NEGATIVE (Neg)
[2022-12-03 20:28] LABS: UA COLLECTION TYPE FOLEY CATH
[2022-12-03 20:29] LABS: CELLULAR CAST 0-4 /LPF (NEGATIVE); HYALINE CASTS 0-3 /LPF (NEGATIVE); SQUAMOUS EPITHELIAL CELL,UR FEW /LPF (FEW)
[2022-12-03 20:30] LABS: BACTERIA,URINE NONE SEEN /HPF (Neg); CAL OXALATE CRYSTALS FEW /HPF (NEGATIVE); TRANSITIONAL EPI CELLS,URINE FEW /HPF
[2022-12-03 20:31] LABS: WBC,URINE 0-4 /HPF (0-4)
--- NOTE | 2022-12-03 21:15 | NUR ---
D/C PAPERWORK REVIEWED WITH FAMILY AND PT AT BEDSIDE. FAMILY EDUCATED THERE IS NO TRANSPORT AVALIABLE AT THIS TIME.
[2022-12-03 21:23] VITALS: BP 124/63
--- NOTE | 2022-12-04 02:32 | NUR ---
Pt here overnight, awaiting transportation back to [facility] in the AM. Pt sleeping, respirations observed. Will continue to monitor.
== END 2022-12-04 06:11 ==
LOC: ER 18:36
DX: R33.9 Retention of urine, unspecified (principal); K76.9 Liver disease, unspecified; I11.9 Hypertensive heart disease without heart failure; E11.9 Type 2 diabetes mellitus without complications; Z79.899 Other long term (current) drug therapy; Z79.82 Long term (current) use of aspirin; Z79.1 Long term (current) use of non-steroidal anti-inflammatories (NSAID); Z79.2 Long term (current) use of antibiotics
CPT/HCPCS: 36415; 51702; 80048; 81001; 85025; 99284; A4340

== ENCOUNTER 2022-12-14 08:29 | Day surgery (SDC) | payer MEDICARE, BC ==
[2022-12-14] VITALS (9 sets, daily range): BP systolic 90–107; BP diastolic 47–60
[~2022-12-14] VITALS: Ht 188 cm; Wt 97.7 kg
[~2022-12-14 08:29] MED LIST changes: -ATOR40TA PO; -CARB1TAB36; -CARV-50 PO; -CARV25TA PO; -COL0.6T; -GABA-338 PO; -LISI-222 PO; -LISI5TAB22 PO; -POTA20TA84 PO; -RASA1TAB PO; -SACU1TAB7 PO; -SIMV10TA98 PO; -SULI150T50 PO
[2022-12-14] MEDS ORDERED: METO5TAB85 PO (08:58)
[2022-12-14] MEDS ORDERED: LIDOcaine 1%/PF 5ML 10 MG/ML VIAL SQ ONE ×2 (09:16)
[2022-12-14] MEDS ORDERED: albumin 25% 100mL bottle x 1 IV PRN (09:55)
== END 2022-12-14 11:35 ==
LOC: SSTAY O 08:29
PROVIDERS: ATTEND Radiology Vascular & Interventional Radiology
DX: R18.8 Other ascites (principal); K74.60 Unspecified cirrhosis of liver; G20 Parkinson's disease; I48.91 Unspecified atrial fibrillation; I11.0 Hypertensive heart disease with heart failure; I50.9 Heart failure, unspecified; E11.9 Type 2 diabetes mellitus without complications; Z95.1 Presence of aortocoronary bypass graft; Z79.899 Other long term (current) drug therapy; Z79.82 Long term (current) use of aspirin
CPT/HCPCS: 49083; J3490; P9047; A6258; A6449

== ENCOUNTER 2023-06-11 12:35 | Inpatient (IN) | payer OTHER, MEDICARE, BC ==
[~2023-06-11] VITALS: Ht 188 cm; Wt 69.0 kg
[~2023-06-11 12:35] MED LIST changes: -CHOL20002 PO; -CYAN-51 SL; +METO5TAB85 PO
[2023-06-11] MEDS ORDERED: normal saline 1000ML IV soln IVB ONE (13:45)
[2023-06-11] MEDS ORDERED: CefTRIAXone/D5W-Rocephin 1gm 50 ML IV ONE (13:45)
--- NOTE | 2023-06-11 14:12 | NUR ---
TRIED TO GET UA AND PT DEFECATED IN HAT, WILL TRY AGAIN LATER
[2023-06-11 14:43] LABS: BASOPHILS # (AUTO) 0.1 X10'3 (0-0.2); BASOPHILS % (AUTO) 0.9 % (0-1); EOSINOPHILS # (AUTO) 0.1 X10'3 (0-0.9); EOSINOPHILS % (AUTO) 1.7 % (0-6); HEMATOCRIT 34.7 % (42.0-52.0); HEMOGLOBIN 11.8 g/dl (14.0-17.9); LYMPHOCYTES % (AUTO) 13.9 % (21-51); MEAN CORPUSCULAR HEMOGLOBIN 33.4 PG (27.0-31.0); MEAN CORPUSCULAR VOLUME 98.4 FL (78-98); MONOCYTES # (AUTO) 0.7 X10'3 (0-0.9); NEUTROPHILS # (AUTO) 5.4 X10'3 (1.8-7.7); NEUTROPHILS % (AUTO) 73.5 % (42-75); PLATELET COUNT 135 X10'3 (140-440); RED BLOOD COUNT 3.52 X10'6 (4.70-6.10); RED CELL DISTRIBUTION WIDTH 14.3 % (11.5-14.5); WHITE BLOOD COUNT 7.3 X10'3 (4.5-11.0)
[2023-06-11 15:02] LABS: ALANINE AMINOTRANSFERASE 11 U/L (12-78); ALBUMIN 4.6 G/DL (3.4-5.0); ALBUMIN/GLOBULIN RATIO 1.2 (1.1-1.5); ALKALINE PHOSPHATASE 98 IU/L (46-116); ANION GAP 12 (8-16); ASPARTATE AMINO TRANSFERASE 116 U/L (10-37); BILIRUBIN,TOTAL 2.2 MG/DL (0.1-1.0); BLOOD UREA NITROGEN 50 MG/DL (7-18); BUN/CREATININE RATIO 21.1 (10.0-20.0); CALCIUM 10.5 MG/DL (8.5-10.1); CHLORIDE 92 MMOL/L (99-107); CREATININE 2.37 MG/DL (0.60-1.10); GLUCOSE 119 MG/DL (70-104); LIPASE 39 U/L (16-77); POTASSIUM 4.6 MMOL/L (3.5-5.1); SODIUM 126 MMOL/L (135-145); TOTAL CARBON DIOXIDE 22.3 MMOL/L (24-32); TOTAL PROTEIN 8.4 G/DL (6.4-8.2); eCRCL 25 ML/MIN; eGFR 27 ML/MIN
[2023-06-11] MEDS ORDERED: ringers solution, lacted 1,000 ML IV ONE (18:00)
[2023-06-11 18:25] LABS: BILIRUBIN,URINE NEGATIVE (Neg); CLARITY,URINE CLOUDY (Clear); COLOR,URINE YELLOW (Yellow); GLUCOSE, URINE NEGATIVE (Neg); KETONES,URINE TRACE mg/dl (Neg); LEUKOCYTE ESTERASE ,URINE LARGE (Neg); NITRITES, URINE NEGATIVE (Neg); OCCULT BLOOD,URINE SMALL (Neg); PROTEIN,URINE TRACE mg/dl (Neg); UROBILINOGEN,URINE 0.2 E.U/dL (0.2-1.0)
[2023-06-11 18:34] LABS: UA COLLECTION TYPE URINAL
[2023-06-11 18:35] LABS: BACTERIA,URINE 4+ /HPF (Neg); HYALINE CASTS 0-3 /LPF (NEGATIVE); SQUAMOUS EPITHELIAL CELL,UR MODERATE /LPF (FEW)
[2023-06-11 18:36] LABS: RBC,URINE 0-2 /HPF (0-2)
[2023-06-11 18:37] LABS: WBC,URINE TNTC /HPF (0-4)
[2023-06-11 19:20] LABS: APTT 36 SECONDS (22-32); INR 1.2 INR; PROTHROMBIN TIME 12.4 SECONDS (9.0-12.0)
--- NOTE | 2023-06-11 19:34 | NUR ---
Patient placed on hospital bed and moved to bed 16 to be closer to nurses station.
[2023-06-11] MEDS ORDERED: temazepam 15mg capsule PO PRN (21:00)
[2023-06-11] MEDS ORDERED: ondansetron 4mg rapidly disintigrating tab PO PRN (21:10)
[2023-06-11] MEDS ORDERED: HYDROcodone/acetaminophen 5mg/325mg tablet PO PRN (21:10)
[2023-06-11] MEDS ORDERED: morphine 2 MG/ML inj. syringe IV PRN (21:10)
[2023-06-11] MEDS ORDERED: acetaminophen 650mg rectal suppository RC PRN (21:10)
[2023-06-11] MEDS ORDERED: diphenhydrAMINE 50 mg/ml inj IV PRN (21:10)
[2023-06-11] MEDS ORDERED: bisacodyl 10mg suppository rectal RC PRN (21:10)
[2023-06-11] MEDS ORDERED: mag hydrox/Alum hydrox/simeth 30ml oral suspension PO PRN (21:10)
[2023-06-11] MEDS ORDERED: magnesium hydroxide 30ml (MOM) UD suspension PO PRN (21:10)
[2023-06-11] MEDS ORDERED: acetaminophen 325mg tablet PO PRN ×2 (21:10)
[2023-06-11] MEDS ORDERED: ondansetron/PF 4mg/2ml inj IV PRN (21:10)
[2023-06-11] MEDS ORDERED: diphenhydrAMINE 25mg capsule PO PRN (21:10)
[2023-06-11] MEDS: normal saline 1000ml 1,000 ML IV SCH (21:52)
[2023-06-11 22:51] LABS: MAGNESIUM 1.8 MG/DL (1.5-2.4); PHOSPHORUS 4.7 MG/DL (2.3-4.5)
[2023-06-12 02:36] LABS: BASOPHILS # (AUTO) 0.1 X10'3 (0-0.2); BASOPHILS % (AUTO) 1.1 % (0-1); EOSINOPHILS # (AUTO) 0.1 X10'3 (0-0.9); EOSINOPHILS % (AUTO) 1.4 % (0-6); HEMATOCRIT 31.8 % (42.0-52.0); HEMOGLOBIN 10.8 g/dl (14.0-17.9); LYMPHOCYTES # (AUTO) 0.6 X10'3 (1.1-4.8); LYMPHOCYTES % (AUTO) 12.1 % (21-51); MEAN CORPUSCULAR HEMOGLOBIN 33.3 PG (27.0-31.0); MEAN CORPUSCULAR HGB CONC 33.9 g/dL (33.0-36.5); MEAN CORPUSCULAR VOLUME 98.1 FL (78-98); MONOCYTES # (AUTO) 0.6 X10'3 (0-0.9); MONOCYTES % (AUTO) 12.7 % (2-12); NEUTROPHILS # (AUTO) 3.4 X10'3 (1.8-7.7); NEUTROPHILS % (AUTO) 72.7 % (42-75); PLATELET COUNT 101 X10'3 (140-440); RED BLOOD COUNT 3.24 X10'6 (4.70-6.10); RED CELL DISTRIBUTION WIDTH 14.6 % (11.5-14.5); WHITE BLOOD COUNT 4.7 X10'3 (4.5-11.0)
[2023-06-12 02:47] LABS: ALANINE AMINOTRANSFERASE 11 U/L (12-78); ALBUMIN 4.1 G/DL (3.4-5.0); ALBUMIN/GLOBULIN RATIO 1.3 (1.1-1.5); ALKALINE PHOSPHATASE 90 IU/L (46-116); ANION GAP 14 (8-16); ASPARTATE AMINO TRANSFERASE 81 U/L (10-37); BILIRUBIN,TOTAL 1.5 MG/DL (0.1-1.0); BLOOD UREA NITROGEN 44 MG/DL (7-18); BUN/CREATININE RATIO 23.3 (10.0-20.0); CALCIUM 9.8 MG/DL (8.5-10.1); CHLORIDE 95 MMOL/L (99-107); CREATININE 1.89 MG/DL (0.60-1.10); GLUCOSE 106 MG/DL (70-104); POTASSIUM 4.2 MMOL/L (3.5-5.1); SODIUM 129 MMOL/L (135-145); TOTAL CARBON DIOXIDE 19.9 MMOL/L (24-32); TOTAL PROTEIN 7.3 G/DL (6.4-8.2); eCRCL 32 ML/MIN; eGFR 35 ML/MIN
--- NOTE | 2023-06-12 05:12 | NUR ---
Assisted patient with nursing staff x2 to bedside commode. Patient able to have BM. Patient cleaned and new brief placed. Assisted patient back to bed. Denies further needs a this time, call light within reach.
[2023-06-12] MEDS ORDERED: THIA50TA10 PO ×2 (05:30→05:32)
[2023-06-12] MEDS ORDERED: VITC500T PO (05:34)
[2023-06-12] MEDS ORDERED: CYAN500T71 PO (05:35)
[2023-06-12] MEDS ORDERED: APIX5TAB3 PO (05:37)
[2023-06-12] MEDS ORDERED: CHOL20004 PO (05:37)
[2023-06-12] MEDS ORDERED: FURO-150 PO (05:39)
[2023-06-12] MEDS ORDERED: RASA1TAB PO (05:40)
[2023-06-12] MEDS ORDERED: PANT40TA54 PO (05:41)
[2023-06-12] MEDS ORDERED: SODI100035 PO ×2 (05:42→16:21)
[2023-06-12] MEDS ORDERED: POTA-192 PO (05:43)
[2023-06-12] MEDS ORDERED: FERR325T28 PO (05:44)
--- NOTE | 2023-06-12 05:54 | NUR ---
Patient had a cardiac rhythm change, sinus tach with multiple PVCs. EKG obtained showen to ER MD. Dr. Morillo called, verbalized understanding, states new orders will be placed.
[2023-06-12] MEDS ORDERED: diltiazem 5mg/ml 5ml inj. IV ONE (06:00)
[2023-06-12] MEDS ORDERED: normal saline 500ml IV soln 500 ML IV ONE (06:05)
--- NOTE | 2023-06-12 06:45 | NUR ---
RECEIVED REPORT, ASSUMED PT CARE. PT IS AWAKE, ALERT, AND CONFUSED. PER FAMILY PT IS MORE CONFUSED AND NOT AT HIS BASE LINE.
[2023-06-12] MEDS ORDERED: furosemide 40mg/4ml inj IV SCH (08:00)
[2023-06-12] MEDS: docusate sod 100mg capsule PO SCH ×2 (08:00→20:00)
[2023-06-12] MEDS: pantoprazole 40mg Tablet.DR PO SCH (08:00)
[2023-06-12] MEDS: normal saline 1000ml 1,000 ML IV SCH ×2 (08:02→17:06)
--- NOTE | 2023-06-12 08:15 | NUR ---
PT RESTING QUIETLY, HR IMPROVED AFTER BEING MEDICATED.
[2023-06-12 09:05] LABS: D-DIMER 0.53 MG/L FEU (0-0.50)
[2023-06-12 09:06] LABS: OSMOLALITY 291 MOSM/K (280-300)
--- NOTE | 2023-06-12 10:30 | NUR ---
PT RESTING QUIETLY IN NAD.
--- NOTE | 2023-06-12 11:25 | NUR ---
PT DID NOT EAT AM MEAL AFTER REPEATED OFFERS TO ASSIST.
[2023-06-12] MEDS: CefTRIAXone/D5W-Rocephin 1gm 50 ML IV SCH (13:00)
--- NOTE | 2023-06-12 14:34 | NUR ---
PT WITH NO CHANGE FROM PREVIOUS, FAMILY AT BS
--- NOTE | 2023-06-12 16:37 | NUR ---
pt with loose stool in diaper. pt cleaned, new diaper applied. pt moved up in bed and repositioned for comfort.
[2023-06-12] MEDS: carbidoba-levodopa 25-100mg tablet PO SCH (20:35)
[2023-06-12] MEDS: furosemide 20 MG/2 ML vial IV SCH (20:35)
[2023-06-12] MEDS: apixaban 5mg tablet PO SCH (20:36)
[2023-06-13] VITALS (12 sets, daily range): BP systolic 94–146; BP diastolic 58–94; PULSE 73–143; RESP 11–18; TEMP 96.3–97.7; O2SAT 93–100
[2023-06-13] MEDS ORDERED: sodium chloride 1gm tablet PO SCH
[2023-06-13] MEDS: normal saline 1000ml 1,000 ML IV SCH ×3 (00:10→23:10)
[2023-06-13 03:50] LABS: BASOPHILS % (AUTO) 0.6 % (0-1); EOSINOPHILS % (AUTO) 0.3 % (0-6); HEMATOCRIT 33.5 % (42.0-52.0); HEMOGLOBIN 11.4 g/dl (14.0-17.9); LYMPHOCYTES # (AUTO) 0.4 X10'3 (1.1-4.8); LYMPHOCYTES % (AUTO) 9.4 % (21-51); MEAN CORPUSCULAR HEMOGLOBIN 33.5 PG (27.0-31.0); MEAN CORPUSCULAR VOLUME 98.6 FL (78-98); MEAN PLATELET VOLUME 8.1 FL (7.4-10.4); MONOCYTES # (AUTO) 0.6 X10'3 (0-0.9); MONOCYTES % (AUTO) 13.2 % (2-12); NEUTROPHILS # (AUTO) 3.6 X10'3 (1.8-7.7); NEUTROPHILS % (AUTO) 76.5 % (42-75); PLATELET COUNT 107 X10'3 (140-440); RED CELL DISTRIBUTION WIDTH 14.6 % (11.5-14.5); WHITE BLOOD COUNT 4.7 X10'3 (4.5-11.0)
[2023-06-13 04:05] LABS: ALANINE AMINOTRANSFERASE 12 U/L (12-78); ALBUMIN 4.1 G/DL (3.4-5.0); ALBUMIN/GLOBULIN RATIO 1.1 (1.1-1.5); ALKALINE PHOSPHATASE 97 IU/L (46-116); ANION GAP 17 (8-16); ASPARTATE AMINO TRANSFERASE 51 U/L (10-37); BILIRUBIN,TOTAL 1.1 MG/DL (0.1-1.0); BLOOD UREA NITROGEN 36 MG/DL (7-18); BUN/CREATININE RATIO 23.7 (10.0-20.0); CALCIUM 9.8 MG/DL (8.5-10.1); CHLORIDE 98 MMOL/L (99-107); CREATININE 1.52 MG/DL (0.60-1.10); GLUCOSE 126 MG/DL (70-104); POTASSIUM 4.1 MMOL/L (3.5-5.1); SODIUM 133 MMOL/L (135-145); TOTAL CARBON DIOXIDE 17.8 MMOL/L (24-32); TOTAL PROTEIN 7.8 G/DL (6.4-8.2); eCRCL 39 ML/MIN; eGFR 45 ML/MIN
[2023-06-13] MEDS ORDERED: diltiazem 5mg/ml 5ml inj. IV ONE (05:35)
--- NOTE | 2023-06-13 07:13 | NUR ---
Patient in room ED 16. I have received report from Endy CHAPPELL and had the opportunity to ask questions and assume patient care.
[2023-06-13] MEDS ORDERED: ferrous sulfate 325mg tablet PO SCH (08:00)
[2023-06-13] MEDS ORDERED: thiamine 100mg tablet PO SCH (08:00)
[2023-06-13] MEDS ORDERED: pantoprazole 40mg Tablet.DR PO SCH (08:00)
[2023-06-13] MEDS: apixaban 5mg tablet PO SCH ×2 (10:26→20:03)
[2023-06-13] MEDS: carbidoba-levodopa 25-100mg tablet PO SCH ×3 (10:26→20:05)
[2023-06-13] MEDS: pantoprazole 40mg Tablet.DR PO SCH (10:26)
[2023-06-13] MEDS: potassium Cl 20 mEq SR tablet PO SCH (10:27)
[2023-06-13] MEDS: docusate sod 100mg capsule PO SCH ×2 (10:27→20:00)
[2023-06-13] MEDS: furosemide 20 MG/2 ML vial IV SCH ×2 (10:29→20:03)
[2023-06-13] MEDS: cholecalciferol (vitamin D3) 1,000 unit (25mcg) tablet PO SCH (10:29)
[2023-06-13] MEDS: RASAGILINE MESYLATE 1 MG PO SCH (10:40)
[2023-06-13] MEDS: spironolactone 25 MG tablet PO SCH (10:40)
[2023-06-13] MEDS: ascorbic acid 500mg tablet PO SCH (10:41)
[2023-06-13] MEDS: cyanocobalamin 500mcg tablet PO SCH (10:41)
[2023-06-13 10:55] LABS: HEMOGLOBIN A1C 5.2 % (4.5-6.2)
[2023-06-13] MEDS: CefTRIAXone/D5W-Rocephin 1gm 50 ML IV SCH (14:10)
[2023-06-13] MEDS: diltiazem-NS 100mg/100ml 100 ML IV SCH (16:06)
[2023-06-14] VITALS (14 sets, daily range): BP systolic 100–130; BP diastolic 51–72; PULSE 70–89; RESP 8–19; TEMP 97.2–98.5; O2SAT 94–100
--- NOTE | 2023-06-14 01:26 | NUR ---
pt was bladder scanned,1550 mls of urine noted.Per protocol, straight catheterization was done and 1600mls of urine was recorded.will continue to monitor.
--- NOTE | 2023-06-14 05:30 | NUR ---
pt was bladder scanned at this time,575mls of urine was noted. MD notified, indwelling santoyo catheter ordered.
--- NOTE | 2023-06-14 06:17 | NUR ---
Report was given to Aneta
[2023-06-14 06:22] LABS: BASOPHILS % (AUTO) 0.8 % (0-1); EOSINOPHILS # (AUTO) 0.1 X10'3 (0-0.9); EOSINOPHILS % (AUTO) 1.9 % (0-6); HEMATOCRIT 32.4 % (42.0-52.0); HEMOGLOBIN 10.8 g/dl (14.0-17.9); LYMPHOCYTES # (AUTO) 0.8 X10'3 (1.1-4.8); LYMPHOCYTES % (AUTO) 15.7 % (21-51); MEAN CORPUSCULAR HGB CONC 33.4 g/dL (33.0-36.5); MEAN CORPUSCULAR VOLUME 98.7 FL (78-98); MONOCYTES # (AUTO) 0.8 X10'3 (0-0.9); MONOCYTES % (AUTO) 14.7 % (2-12); NEUTROPHILS # (AUTO) 3.5 X10'3 (1.8-7.7); NEUTROPHILS % (AUTO) 66.9 % (42-75); PLATELET COUNT 109 X10'3 (140-440); RED BLOOD COUNT 3.28 X10'6 (4.70-6.10); RED CELL DISTRIBUTION WIDTH 14.8 % (11.5-14.5); WHITE BLOOD COUNT 5.3 X10'3 (4.5-11.0)
[2023-06-14] MEDS: diltiazem-NS 100mg/100ml 100 ML IV SCH (06:48)
[2023-06-14 07:03] LABS: ALANINE AMINOTRANSFERASE 6 U/L (12-78); ALBUMIN 3.6 G/DL (3.4-5.0); ALBUMIN/GLOBULIN RATIO 1.1 (1.1-1.5); ALKALINE PHOSPHATASE 81 IU/L (46-116); ANION GAP 11 (8-16); ASPARTATE AMINO TRANSFERASE 29 U/L (10-37); BILIRUBIN,TOTAL 0.9 MG/DL (0.1-1.0); BLOOD UREA NITROGEN 40 MG/DL (7-18); BUN/CREATININE RATIO 25.6 (10.0-20.0); CALCIUM 9.9 MG/DL (8.5-10.1); CHLORIDE 98 MMOL/L (99-107); CREATININE 1.56 MG/DL (0.60-1.10); GLUCOSE 102 MG/DL (70-104); POTASSIUM 3.9 MMOL/L (3.5-5.1); SODIUM 131 MMOL/L (135-145); TOTAL CARBON DIOXIDE 22.2 MMOL/L (24-32); eCRCL 38 ML/MIN; eGFR 43 ML/MIN
--- NOTE | 2023-06-14 07:40 | NUR ---
Patient in room PCU 3013. I have received report from Whitley CHAPPELL and had the opportunity to ask questions and assume patient care.
[2023-06-14] MEDS: RASAGILINE MESYLATE 1 MG PO SCH (08:00)
[2023-06-14] MEDS: docusate sod 100mg capsule PO SCH (08:00)
[2023-06-14] MEDS: ascorbic acid 500mg tablet PO SCH (08:00)
[2023-06-14] MEDS ORDERED: thiamine 100mg tablet PO SCH (08:27)
[2023-06-14] MEDS: pantoprazole 40mg Tablet.DR PO SCH (08:28)
[2023-06-14] MEDS: cholecalciferol (vitamin D3) 1,000 unit (25mcg) tablet PO SCH (08:28)
[2023-06-14] MEDS: furosemide 20 MG/2 ML vial IV SCH (08:28)
[2023-06-14] MEDS: carbidoba-levodopa 25-100mg tablet PO SCH ×3 (08:28→20:04)
[2023-06-14] MEDS: cyanocobalamin 500mcg tablet PO SCH (08:28)
[2023-06-14] MEDS: spironolactone 25 MG tablet PO SCH (08:30)
[2023-06-14] MEDS: apixaban 5mg tablet PO SCH ×2 (08:31→20:05)
[2023-06-14] MEDS: potassium Cl 20 mEq SR tablet PO SCH (08:31)
[2023-06-14] MEDS: normal saline 1000ml 1,000 ML IV SCH (11:43)
[2023-06-14] MEDS: CefTRIAXone/D5W-Rocephin 1gm 50 ML IV SCH (14:07)
[2023-06-14] MEDS ORDERED: furosemide 20 MG/2 ML vial IV SCH (15:10)
--- NOTE | 2023-06-14 16:52 | NUR ---
Malnutrition consult: Pt DX altered mental status possibly secondary to UTI, hyponatremia, ZITA on CKD stage III, uncontrolled A-fib with RVR, Per RN malnutrition screen pt reports 2-13 pound wt loss and a decreased in PO intake/appetite. Scaled wt this admit of 69kg (152 pounds) is down from prior wt in EMR of 101.4kg (223 pounds) in 11/28/22 suggesting 32% wt loss in 6 months; significant for severe malnutrition. Pt seen at bedside for a malnutrition assessment. Pt in a deep sleep during RD visit and did not wake up to verbal cues. Pt physically has severe temporal wasting and wasting to clavicle region. Due to significant wt loss in EMR and physical signs of muscle wasting, pt meets a minimum of two malnutrition criteria at this time; MD notified. Pt continues on a heart healthy diet with average PO intake of 0-25% x 4 meals including 3 refused meals not meeting estimated needs. Recommend Ensure Enlive TIDWM to help meet estimated needs; MD notified. Altered mental status likely affecting intake. LBM on 06/13 per EMR. Will continue to monitor and make recommendations as appropriate. Recommendations: 1.liberalize heart healthy to regular diet given low serum Na, episodes of low BP, and malnourished status; paged MD on 06/14 2.Ensure Enlive TIDWM; pending physician approval in EMR 3.consider thiamine, folic acid and MVI due to EtoH hx 2.Pt currently independent feeding ability; monitor need for feeder 3.monitor need for adaptive silverware and sippy cup given Parkinson's hx 4.routine bowel care 5.weekly scaled wts Addendum: 06/14/23 at [address] Amended: Links added.
[2023-06-14] MEDS ORDERED: lactose-reduced food (Ensure Enlive) - 237ml bottle PO SCH (18:00)
[2023-06-14] MEDS: carVEDilol 3.125mg tablet PO SCH (20:05)
[2023-06-14] MEDS ORDERED: cefepime 2g/NS 100ml ADVANTAGE 100 ML IV SCH (23:00)
[2023-06-15 02:10] VITALS: BP 105/56; PULSE 90; RESP 20; TEMP 98.7; O2SAT 97
[2023-06-15] MEDS: normal saline 1000ml 1,000 ML IV SCH (03:56)
[2023-06-15 06:00] VITALS: BP 101/50; PULSE 87; RESP 20; TEMP 98.3; O2SAT 96
--- NOTE | 2023-06-15 06:41 | NUR ---
Problems reprioritized. Patient report given, questions answered & plan of care reviewed with Aneta CHAPPELL. Pt stable at shift change.
[2023-06-15] MEDS ORDERED: lisinopril 5mg tablet PO SCH (08:00)
[2023-06-15] MEDS ORDERED: cholecalciferol (vitamin D3) 400 unit (10mcg) tablet PO SCH (08:00)
[2023-06-15] MEDS ORDERED: spironolactone 25 MG tablet PO SCH (08:00)
[2023-06-15] MEDS: cyanocobalamin 500mcg tablet PO SCH (08:56)
[2023-06-15] MEDS: pantoprazole 40mg Tablet.DR PO SCH (08:57)
[2023-06-15] MEDS: carbidoba-levodopa 25-100mg tablet PO SCH ×2 (08:57→15:12)
[2023-06-15] MEDS: carVEDilol 3.125mg tablet PO SCH (08:58)
[2023-06-15] MEDS: RASAGILINE MESYLATE 1 MG PO SCH (08:58)
[2023-06-15] MEDS: apixaban 5mg tablet PO SCH (08:58)
[2023-06-15] MEDS: ascorbic acid 500mg tablet PO SCH (08:58)
[2023-06-15 09:10] LABS: BASOPHILS % (AUTO) 0.9 % (0-1); EOSINOPHILS # (AUTO) 0.1 X10'3 (0-0.9); HEMATOCRIT 28.1 % (42.0-52.0); HEMOGLOBIN 9.7 g/dl (14.0-17.9); LYMPHOCYTES # (AUTO) 1.1 X10'3 (1.1-4.8); LYMPHOCYTES % (AUTO) 26.7 % (21-51); MEAN CORPUSCULAR HEMOGLOBIN 33.7 PG (27.0-31.0); MEAN CORPUSCULAR HGB CONC 34.6 g/dL (33.0-36.5); MEAN CORPUSCULAR VOLUME 97.3 FL (78-98); MEAN PLATELET VOLUME 8.5 FL (7.4-10.4); MONOCYTES # (AUTO) 0.5 X10'3 (0-0.9); MONOCYTES % (AUTO) 11.8 % (2-12); NEUTROPHILS # (AUTO) 2.5 X10'3 (1.8-7.7); NEUTROPHILS % (AUTO) 58.6 % (42-75); PLATELET COUNT 110 X10'3 (140-440); RED BLOOD COUNT 2.89 X10'6 (4.70-6.10); RED CELL DISTRIBUTION WIDTH 14.4 % (11.5-14.5); WHITE BLOOD COUNT 4.3 X10'3 (4.5-11.0)
[2023-06-15 09:27] LABS: ALANINE AMINOTRANSFERASE 6 U/L (12-78); ALBUMIN 3.4 G/DL (3.4-5.0); ALBUMIN/GLOBULIN RATIO 1.1 (1.1-1.5); ALKALINE PHOSPHATASE 74 IU/L (46-116); ANION GAP 8 (8-16); ASPARTATE AMINO TRANSFERASE 19 U/L (10-37); BILIRUBIN,TOTAL 0.7 MG/DL (0.1-1.0); BLOOD UREA NITROGEN 37 MG/DL (7-18); BUN/CREATININE RATIO 33.9 (10.0-20.0); CALCIUM 9.5 MG/DL (8.5-10.1); CHLORIDE 102 MMOL/L (99-107); CREATININE 1.09 MG/DL (0.60-1.10); GLUCOSE 113 MG/DL (70-104); SODIUM 134 MMOL/L (135-145); TOTAL CARBON DIOXIDE 23.8 MMOL/L (24-32); TOTAL PROTEIN 6.6 G/DL (6.4-8.2); eCRCL 56 ML/MIN; eGFR 66 ML/MIN
[2023-06-15 11:00] VITALS: BP 85/50; PULSE 113; RESP 13; TEMP 97.8; O2SAT 99
[2023-06-15] MEDS ORDERED: COR3.125T PO (14:28)
[2023-06-15] MEDS ORDERED: LISI5TAB22 PO (14:28)
[2023-06-15] MEDS ORDERED: CIPR-259 PO (14:28)
[2023-06-15] MEDS ORDERED: GABA300C PO (14:28)
[2023-06-15] MEDS ORDERED: FURO-150 PO (14:28)
[2023-06-15] MEDS ORDERED: SODI100035 PO (14:28)
[2023-06-15 15:00] VITALS: BP 82/45; PULSE 82; RESP 19; TEMP 97; O2SAT 100
[2023-06-15] MEDS ORDERED: POTA-192 PO (15:20)
--- NOTE | 2023-06-15 17:03 | NUR ---
Pt D/C per hospitalist. PIV removed, cannula intact. Tele discontinued. All belongings taken home by patient. Reviewed discharge instructions with patient and daughter, all questions and concerns addressed. RX e-scribed to pharmacy. Pt was wheeled down to lobby by staff development coordinator and taken home by daughter. Pt stable and appropriate for discharge.
== END 2023-06-15 17:05 | disposition home or self-care (01) | DRG 682 ==
LOC: ER 12:35 → ED HOLD 21:15 → EDBEDREQ 06-13 06:09 → PCU 3S 06-13 07:39
PROVIDERS: ADMIT Family Medicine; ATTEND Family Medicine
DX: N17.0 Acute kidney failure with tubular necrosis (principal); G92.9 Unspecified toxic encephalopathy; I50.23 Acute on chronic systolic (congestive) heart failure; I13.0 Hypertensive heart and chronic kidney disease with heart failure and stage 1 through stage 4 chronic kidney disease, or unspecified chronic kidney disease; N39.0 Urinary tract infection, site not specified; E87.1 Hypo-osmolality and hyponatremia; E87.20 Acidosis, unspecified; G93.40 Encephalopathy, unspecified; N18.9 Chronic kidney disease, unspecified; M10.9 Gout, unspecified; I48.91 Unspecified atrial fibrillation; E11.22 Type 2 diabetes mellitus with diabetic chronic kidney disease; K74.60 Unspecified cirrhosis of liver; I65.29 Occlusion and stenosis of unspecified carotid artery; E11.42 Type 2 diabetes mellitus with diabetic polyneuropathy; M19.90 Unspecified osteoarthritis, unspecified site; G47.33 Obstructive sleep apnea (adult) (pediatric); I27.20 Pulmonary hypertension, unspecified; I08.1 Rheumatic disorders of both mitral and tricuspid valves; D46.9 Myelodysplastic syndrome, unspecified; E78.5 Hyperlipidemia, unspecified; G20.A1 Parkinson's disease without dyskinesia, without mention of fluctuations; I25.10 Atherosclerotic heart disease of native coronary artery without angina pectoris; Z95.1 Presence of aortocoronary bypass graft; Z87.891 Personal history of nicotine dependence; Z95.810 Presence of automatic (implantable) cardiac defibrillator; Z79.899 Other long term (current) drug therapy; Z79.01 Long term (current) use of anticoagulants
CPT/HCPCS: 36415; 70450; 71045; 80053; 81001; 82140; 83036; 83605; 83690; 83735; 83880; 83930; 84100; 84145; 84484; 85025; 85379; 85610; 85730; 87077; 87081; 87088; 87186; 93306; 97161; 97530; 97535; 99285; A4314; A4349; C1758; G0378; J0692; J0696; J1940; J3490; J7030; J7040; J7120